=== PATIENT | male | born 1950 | race African-American/Black ===

== ENCOUNTER 2021-01-15 16:51 | Emergency (ER) | payer OTHER, SELFPAY ==
[2021-01-15 17:15] VITALS: BP 144/70; PULSE 102; RESP 18; TEMP 36.5; O2SAT 95; BMI 19.0
--- NOTE | 2021-01-15 17:54 | HMH.EDUTC ---
[facility] Disposition Clinical Impression: Parotiditis Pharyngitis Qualifiers: Pharyngitis/tonsillitis etiology: unspecified etiology Qualified Code(s): J02.9 - Acute pharyngitis, unspecified Disposition: Home, Self-Care Condition on Discharge: Good Instructions: Parotitis, DI for Parotitis-Adult Additional Instructions: Drink plenty of fluids. Take tylenol or ibuprofen for pain or fever. Take the medications as directed. Follow up with your regular doctor. GO TO THE ER FOR ANY WORSENING SYMPTOMS Prescriptions: Amoxicillin/Potassium Clav [Augmentin 875-125 Tablet] 1 tab PO Q12H 10 Days #20 tab Transmission Status: Received by [id number] predniSONE [Deltasone 10mg tablet] 10 mg PO BID 3 Days #6 tab Transmission Status: Received by [id number] Referrals: Provider,Referral, MD [Primary Care Provider] - Time of Disposition: 18:22 Medical Decision Making - Medical Records Medical records reviewed: No: I reviewed the patient's medical records. - Omar Inquiry Pt receiving controlled substance: No Vital Signs: 01/15/21 17:15 01/15/21 18:02 Temperature 97.7 F 97.7 F Temperature Source Oral Pulse Rate 102 H Pulse Rate [Right Brachial] 102 H Respiratory Rate 18 18 Blood Pressure 144/70 H Blood Pressure [Right Arm] 144/70 H Blood Pressure Mean [Right Arm] 94 Blood Pressure Source [Right Arm] Automatic Cuff Blood Pressure Position [Right Arm] Sitting 02 Sat by Pulse Oximetry 95 Oxygen Delivery Method Room Air - Lab Data Lab results reviewed: Yes: I reviewed the patient's lab results. Orders (Tests/Meds): ED MEDICATIONS Discontinued Medications Generic Name Dose Route Start Last Admin Trade Name Freq PRN Reason Stop Dose Admin Ceftriaxone Sodium 1 gm 01/15/21 17:56 01/15/21 18:01 Ceftriaxone 1gm Vial IM 01/15/21 17:57 1 gm ONCE ONE Administration Lidocaine HCl 0 ml 01/15/21 17:56 01/15/21 18:01 Lidocaine 1% 5ml Pf Vial IM 01/15/21 17:57 2.1 ml ONCE ONE Administration [facility] HPI - General Stated complaint: knot below righ ear, cannot eat Time Seen by Provider: 01/15/21 17:35 Mode of Arrival: Ambulatory Source of Information: Patient Limitations: No Limitations Description of Symptoms (Recalled from Triage Doc. by RN): PATIENT C/O PROBLEM WITH RIGH EAR AND DIFFICULTY CHEWING AND OPENING MOUTH. WAS SEEN AT [facility] ON 12/04 WITH SAME PROBLEM BUT STATES THEY DID NOT ACT CONCERNED HEENT Symptoms (Recalled from RN notes): Yes Resp Symptoms (Recalled from RN notes): No Skin Symptoms (Recalled from RN notes): No MS Symptoms (Recalled from RN notes): No Functional Status (Recalled from RN notes): WNL - History of Present Illness Provider Complaint: He is having swelling and tenderness to his right jaw line and the area right in front of his right ear. He also has a sore throat. He states that the tenderness started about 2 weeks ago and it has got progressively worse. He denies any fever. - Related Data Home Medications Medication Instructions Recorded Confirmed Omeprazole Magnesium [Prilosec Otc 20 mg PO DAILY 12/19/17 12/19/17 20mg Tab] Previous Rx's Medication Instructions Recorded methylPREDNISolone [Medrol] 16 mg PO UD DOSE PK #1 tablet 12/19/17 Amoxicillin/Potassium Clav 1 tab PO Q12H 10 Days #20 tab 01/15/21 [Augmentin 875-125 Tablet] predniSONE [Deltasone 10mg tablet] 10 mg PO BID 3 Days #6 tab 01/15/21 Allergies Allergy/AdvReac Type Severity Reaction Status Date / Time No Known Allergies Allergy Verified 01/15/21 17:44 - Worker's Comp Is this a Worker's Comp case?: No [facility] History - Hepatitis A Screen Drug use history?: No High risk sexual behaviors?: No History of sexually transmitted infection?: No Currently employed?: No Childcare worker?: No Do you have indoor plumbing?: Yes Do you have electricity?: Yes Attestation statement:: This patient has been screened for Hepatitis A risk
[2021-01-15 18:02] VITALS: BP 144/70; PULSE 102; RESP 18; TEMP 36.5; O2SAT 95
== END 2021-01-15 18:25 | disposition home or self-care (01) ==
LOC: ER 16:55 → UTC 16:56
PROVIDERS: Emergency Provider Family Medicine
DX: K11.20 Sialoadenitis, unspecified (principal); F17.210 Nicotine dependence, cigarettes, uncomplicated
CPT/HCPCS: G0463; 96372; 99202

== ENCOUNTER → 2021-03-01 17:54 | Outpatient (CLI) | payer OTHER, SELFPAY | PROVIDERS: PCP Physician Assistant; Visit Provider Nurse Practitioner | DX: U07.1 COVID-19 (principal) | CPT/HCPCS: C9803; U0003; U0005 ==

== ENCOUNTER 2021-11-30 14:48 | Emergency (ER) | payer OTHER, MEDICARE, SELFPAY ==
[2021-11-30 14:50] VITALS: BP 170/94; PULSE 93; RESP 18; TEMP 36.8; O2SAT 96; BMI 17.6
--- NOTE | 2021-11-30 14:58 | PC.NURSE ---
145 ED MD AT BEDSIDE
--- NOTE | 2021-11-30 14:59 | CT_ITS ---
FINAL REPORT CLINICAL HISTORY: Transient memory loss FINDINGS: Axial images of the head were obtained without contrast. Coronal reformatted images were also obtained. This study was performed with techniques to keep radiation doses as low as reasonably achievable (ALARA). Individualized dose reduction techniques using automated exposure control or adjustment of mA and/or kV according to the patient's size were employed. There is generalized age-appropriate atrophy. Periventricular low-attenuation areas are seen consistent with mild chronic ischemic changes. There is no evidence of intracranial hemorrhage or mass. There is no evidence of acute infarct. There is no evidence of shift of the midline structures. No skull abnormality is seen on the bone window images. IMPRESSION: Atrophy and mild periventricular chronic ischemic changes. No acute intracranial abnormality identified. Reviewed, Interpreted and Dictated by Vasquez Merino III, MD Transcribed by Rusty Childs Authenticated and [facility]
--- NOTE | 2021-11-30 14:59 | CT_ITS ---
FINAL REPORT TECHNIQUE: Thin section axial CT with IV contrast supplemented with multiplanar reconstruction under CT angiogram protocol. 3-D reconstructions were performed. This study was performed with techniques to keep radiation doses as low as reasonably achievable (ALARA). Individualized dose reduction techniques using automated exposure control or adjustment of mA and/or kV according to the patient''s size were employed. CLINICAL HISTORY: Transient memory loss FINDINGS: The distal vertebral, basilar and distal internal carotid arteries have an unremarkable appearance. No aneurysm is seen. Major intracranial vessels are patent without significant stenosis. IMPRESSION: No evidence of significant stenosis, aneurysm or major branch occlusion. Reviewed, Interpreted and Dictated by Vasquez Merino III, MD Transcribed by Rusty Childs Authenticated and [facility]
--- NOTE | 2021-11-30 14:59 | CT_ITS ---
FINAL REPORT TECHNIQUE: Thin section axial CT with IV contrast supplemented with multiplanar reconstruction under CT angiogram protocol. This study was performed with techniques to keep radiation doses as low as reasonably achievable (ALARA). Individualized dose reduction techniques using automated exposure control or adjustment of mA and/or kV according to the patient''s size were employed. NASCET criteria was utilized during interpretation. CLINICAL HISTORY: Transient memory loss FINDINGS: Aortic arch: Arch shows no significant narrowing. Great vessel origins are widely patent. Right carotid: There is mild plaque at the bifurcation. No significant stenosis is seen of the cervical common or internal carotid artery. Left carotid: There is mild plaque at the bifurcation. No significant stenosis is seen of the cervical common or internal carotid artery. Vertebral: Vertebral arteries are code dominant. No significant stenosis is present. IMPRESSION: No significant stenosis. Reviewed, Interpreted and Dictated by Vasquez Merino III, MD Transcribed by Rusty Childs Authenticated and [facility]
--- NOTE | 2021-11-30 14:59 | ECG_ITS ---
APPROVED REPORT Exam: Resting ECG HR:89 bpm ECG Measurements Heart Rate 89 AXES ND 160 P 82 QRSd 78 QRS -63 QT 359 T 89 QTc 405 Conclusion SINUS RHYTHM LOW QRS VOLTAGE IN EXTREMITY LEADS [QRS DEFLECTION < 0.5 mV IN LIMB LEADS] INFERIOR MYOCARDIAL INFARCTION , OF INDETERMINATE AGE [40+ ms Q WAVE AND/OR ST/T ABNORMALITY IN II/aVF] ANTEROSEPTAL MYOCARDIAL INFARCTION , OF INDETERMINATE AGE [40+ ms Q WAVE IN V1-V4] ABNORMAL ECG UNCONFIRMED REPORT Electronically signed by : Albert Gold MD 11/30/2021 17:01:02
--- NOTE | 2021-11-30 15:00 | HMH.EDGENADL ---
ED Disposition Clinical Impression: AMS (altered mental status) Disposition: Home, Self-Care Condition on Discharge: Good Additional Instructions: At this time was felt you are safe to be discharged home from the emergency department. If new or worsening symptoms please do not hesitate to return for continued evaluation. neurology will contact you for an appointment for outpatient follow-up. Please follow-up with them. - Critical Care Critical Care Time: No Attestation: On , the high probability of a clinically significant, sudden or life threatening deterioration of the following system(s) required my full and direct attention, intervention and personal management. The time I documented below is in addition to time spent performing reported procedures but includes the following listed in this critical care notation. Medical Decision Making - Omar Inquiry Pt receiving controlled substance: No Vital Signs: 11/30/21 14:50 Temperature 98.3 F Temperature Source Oral Pulse Rate [Radial] 93 H Respiratory Rate 18 Blood Pressure [Left Arm] 170/94 H Blood Pressure Mean [Left Arm] 119 Blood Pressure Source [Left Arm] Automatic Cuff Blood Pressure Position [Left Arm] Sitting 02 Sat by Pulse Oximetry 96 Oxygen Delivery Method Room Air - Lab Data Lab Results 11/30/21 15:00: WBC 3.5 L, RBC 4.25 L, Hgb 14.3, Hct 44.1, MCV 103.9 H, MCH 33.6 H, MCHC 32.4, RDW 14.5, Plt Count 174, MPV 9.7, Neut % (Auto) 52.8, Lymph % (Auto) 29.9, Lyon % (Auto) 10.3 H, Eos % (Auto) 4.7, Baso % (Auto) 2.2 H, Neut # (Auto) 1.9, Lymph # (Auto) 1.1, Lyon # (Auto) 0.4, Eos # (Auto) 0.2, Baso # (Auto) 0.1 11/30/21 15:00: Sodium 136, Potassium 4.4, Chloride 103, Carbon Dioxide 26, Anion Gap 11.4, BUN 20, Creatinine 1.10, Estimated Creat Clear 52, Estimated GFR 66, Est GFR ( Amer) 80, Glucose 116 H, Calcium 9.4, Magnesium 1.9, Total Bilirubin 0.9, AST 29, ALT 17, Alkaline Phosphatase 112, Total Protein 7.9, Albumin 4.7, Globulin 3.2, Albumin/Globulin Ratio 1.5 Result diagrams: 11/30/21 15:00 11/30/21 15:00 Orders (Tests/Meds): ED MEDICATIONS Discontinued Medications Generic Name Dose Route Start Last Admin Trade Name Amber PRN Reason Stop Dose Admin Iopamidol 100 ml 11/30/21 16:04 11/30/21 16:05 Iopamidol-370 (76%);100ml Bottle IV 11/30/21 16:05 100 ml ONCE ONE Administration Sodium Chloride 50 ml 11/30/21 16:04 11/30/21 16:05 0.9 % Sodium Chloride 50 Ml Vial IV 11/30/21 16:05 50 ml ONCE ONE Administration Sodium Chloride 10 ml 11/30/21 16:04 11/30/21 16:05 Sodium Chloride 0.9% 10ml Syr (Rad Only) IV 11/30/21 16:05 10 ml ONCE ONE Administration - ECG Data Tracing #1 Independently interpreted by me, rate is 89, rhythm is regular, QTc 405, no ST elevation in anatomical contiguous leads Medical Decision Narrative: In summary patient is a 8-year-old male past medical history described above who presents emergency department for evaluation of acute transient memory loss. Patient is hemodynamically stable and nontoxic-appearing upon arrival, alert and oriented, with a nonfocal neurologic exam. Differential diagnosis includes TIA, normal memory loss, dementia, among others. Work-up will be conducted with hematologic labs, noncontrasted CT scan head, CT of the head and neck, EKG. ABCD2 score is 4 putting patient at moderate risk. Work-up is reviewed by me, hematologic labs are nonactionable, CT of the head and neck and noncontrasted CT scan of the head are unremarkable for acute pathology. On repeat evaluation patient continued to have a nonfocal neurologic exam. The case was discussed with [facility] and they recommend outpatient work-up at this time. Patient will be referred to [facility] and was given return precautions and verbalized understanding. General Adult HPI - General Stated complaint: Synocpe lost memory Time Seen by Provider: 11/30/21 15:00 - History of Presen
[2021-11-30 15:29] LABS: Basophils # 0.1 K/mm3 (0-0.2); Basophils % 2.2 % (0.1-2.0); Eosinophils # 0.2 K/mm3 (0.0-0.4); Eosinophils % 4.7 % (0.1-12.0); Hematocrit 44.1 % (42.0-52.0); Hemoglobin 14.3 g/dL (14.1-18.0); Lymphocytes # 1.1 K/mm3 (0.7-4.5); Lymphocytes % 29.9 % (10-50); Mean Corpuscular HGB Conc 32.4 g/dL (31.8-35.4); Mean Corpuscular Hemoglobin 33.6 pg (27.0-31.2); Mean Corpuscular Volume 103.9 fl (80-94); Mean Platelet Volume 9.7 fl (7.4-10.4); Monocytes # 0.4 K/mm3 (0.1-1.0); Monocytes % 10.3 % (1.7-9.3); Neutrophils # 1.9 K/mm3 (1.8-7.8); Neutrophils % 52.8 % (37.0-80.0); Platelet Count 174 K/mm3 (142-424); Red Blood Count 4.25 M/mm3 (4.60-6.20); Red Cell Distribution Width 14.5 % (11.5-17.5); White Blood Count 3.5 K/mm3 (4.8-10.8)
[2021-11-30 15:37] LABS: Chloride 103 mmol/L (98-107); Sodium 136 mmol/L (136-145)
[2021-11-30 15:38] LABS: Potassium 4.4 mmoL/L (3.5-5.1)
[2021-11-30 15:40] LABS: Alanine Aminotransferase 17 U/L (12-78); Albumin Level 4.7 g/dl (3.5-5.0); Albumin/Globulin Ratio 1.5 (1.1-1.8); Alkaline Phosphatase 112 U/L (38-126); Anion Gap 11.4 mEq/L (5-15); Aspartate Amino Transferase 29 U/L (17-59); Bilirubin,Total 0.9 mg/dl (0.2-1.3); Blood Urea Nitrogen 20 mg/dl (9-20); Carbon Dioxide 26 mmol/L (22.0-30.0); Creatinine Clearance Estimated 52 mL/min (50-200); Estimated Glomerular Filt Rate 66 ml/min (>60); GFR (African American) 80 ML/MIN (>60); Globulin 3.2 g/dL (1.3-3.2); Glucose 116 mg/dl (74-100); Total Protein,Serum 7.9 g/dl (6.3-8.2)
[2021-11-30 15:41] LABS: Calcium 9.4 mg/dl (8.4-10.2); Magnesium 1.9 mg/dl (1.6-2.3)
--- NOTE | 2021-11-30 15:58 | PC.NURSE ---
PT TO CT AT THIS TIME
--- NOTE | 2021-11-30 15:59 | PC.NURSE ---
1530 ROUNDED ON PT AT THIS TIME. PT WITHOUT NEEDS
--- NOTE | 2021-11-30 16:09 | PC.NURSE ---
pt return from CT
--- NOTE | 2021-11-30 16:09 | PC.NURSE ---
PT RETURNED FROM CT
--- NOTE | 2021-11-30 16:20 | PC.NURSE ---
1620 ROUNDED ON PT, WARM BLANKET PROVIDED. NO NEEDS AT THIS TIME
--- NOTE | 2021-11-30 17:25 | PC.NURSE ---
GARFIELD BUSTILLOS SPAEKING WITH [facility]
--- NOTE | 2021-11-30 17:27 | PC.NURSE ---
ED MD AT BEDSIDE TO DISCUSS DISCHARGE
[2021-11-30 17:30] VITALS: BP 151/84; PULSE 80; RESP 18; TEMP 36.8; O2SAT 98
== END 2021-11-30 17:33 | disposition home or self-care (01) ==
PROVIDERS: Emergency Provider Emergency Medicine
DX: R41.82 Altered mental status, unspecified (principal); Z79.899 Other long term (current) drug therapy; Z72.0 Tobacco use
CPT/HCPCS: 70450; 70496; 70498; 80053; 83735; 85025; 93005; 99285; Q9967

== ENCOUNTER 2023-04-09 15:36 | Emergency (ER) | payer MEDICARE, OTHER, SELFPAY ==
--- NOTE | 2023-04-09 15:43 | ECG_ITS ---
APPROVED REPORT Exam: Resting ECG HR:83 bpm ECG Measurements Heart Rate 83 AXES ND 157 P 69 QRSd 82 QRS -25 QT 356 T 73 QTc 396 Conclusion SINUS RHYTHM WITH OCCASIONAL VENTRICULAR PREMATURE COMPLEXES POSSIBLE LEFT ATRIAL ENLARGEMENT [-0.1mV P-WAVE IN V1/V2] LOW QRS VOLTAGE IN EXTREMITY LEADS [QRS DEFLECTION < 0.5 mV IN LIMB LEADS] INFERIOR MYOCARDIAL INFARCTION , PROBABLY OLD [40+ ms Q WAVE AND/OR ST/T ABNORMALITY IN II/aVF] ABNORMAL ECG UNCONFIRMED REPORT Electronically signed by : Albert Gold MD 04/09/2023 23:01:30
--- NOTE | 2023-04-09 15:51 | PC.NURSE ---
Dr. Heath at [facility] for pt eval
--- NOTE | 2023-04-09 15:54 | XR_ITS ---
PROCEDURE INFORMATION: Exam: XR Chest Exam date and time: 04/09/2023 4:20 PM Age: 72 years old Clinical indication: Dyspnea TECHNIQUE: Imaging protocol: Radiologic exam of the chest. Views: 1 view. COMPARISON: CT ANGIO NECK 11/30/2021 3:56 PM FINDINGS: Lungs: There is a dense consolidation in the right lower lobe concerning for infection. Pleural spaces: Small right pleural effusion. Heart/Mediastinum: No evidence of mediastinal widening or cardiac silhouette enlargement; the mediastinum and heart appear within normal limits for contour and size. Stable cardiac and mediastinal contours. Vasculature: There are calcifications of the aortic arch. Bones/joints: No evidence of acute osseous abnormalities within the visualized portions of the thoracic spine and ribs. Osseous structures appear appropriate for patient age. IMPRESSION: There is a dense consolidation in the right lower lobe concerning for infection with a small adjacent pleural effusion.
--- NOTE | 2023-04-09 15:55 | ED_ITS ---
Discharge Plan Disposition Patient Disposition: Home, Self-Care Prescriptions Prescriptions: New doxycycline hyclate 100 mg capsule 100 mg PO BID 10 Days Qty: 20 0RF benzonatate 100 mg capsule 100 mg PO TID PRN (Reason: cough) 5 Days Qty: 20 0RF albuterol sulfate 90 mcg/actuation HFA aerosol inhaler 4 inh inhalation Q4H PRN (Reason: shortness of breath or wheezing) Qty: 8.5 0RF Rx Instructions: 4 puffs every 4 hours for 48 hours then as needed for shortness of breath or wheezing following No Action omeprazole magnesium [Prilosec OTC] 20 MG tablet,delayed release (DR/EC) 20 mg PO DAILY methylprednisolone [Medrol] 16 MG tablet 16 mg PO UD DOSE PK Qty: 1 0RF prednisone 10 MG tablet 10 mg PO BID 3 Days Qty: 6 0RF amoxicillin-pot clavulanate 1 EACH tablet 1 tab PO Q12H 10 Days Qty: 20 0RF Referrals Follow up/Referrals: Provider,Referral, MD [Primary Care Provider] - See instructions Activity Restrictions/Add. Instructions Additional Instructions/Restrictions: Symptoms are consistent with a COPD exacerbation right lower lobe pneumonia antibiotics have been prescribed a steroids were given to the emergency department which are long-acting please take your breathing treatment as indicated and return to the emergency department if you have any worsening symptoms. As discussed your salt level was very low and your blood around the point of needing to be hospitalized and I offered hospitalization but you opted to go home. Please drink salt containing fluids such as Gatorade Powerade etc. and have your sodium level rechecked within 24 to 48 hours and return the emergency part with any worsening symptoms. Clinical Impressions Clinical Impression: Acute exacerbation of chronic obstructive pulmonary disease, CAP (community acquired pneumonia), Acute hyponatremia Discharge ED Provider: Pearl Heath General Adult HPI General Chief complaint: Shortness of Breath/Dyspnea Stated complaint: SOA Time Seen by Provider: 04/09/23 15:50 History of Present Illness HPI narrative: Is a 72-year-old with a [id number] history of smoking presumed history of COPD presented today with cough wheezing productive sputum and shortness of breath over the last several days to weeks. No fevers or chills no chest pain associate with this no lower extremity swelling no history of cardiac disease etc. Related Data Home Medications Medication Instructions Recorded Confirmed omeprazole magnesium 20 mg 20 mg PO DAILY GERD 12/19/17 12/19/17 tablet,delayed release (Prilosec OTC) Previous Rx's Medication Instructions Recorded methylprednisolone 16 mg tablet 16 mg PO UD DOSE PK #1 tab 12/19/17 (Medrol) amoxicillin 875 mg-potassium 1 tab PO Q12H 10 days #20 tabs 01/15/21 clavulanate 125 mg tablet prednisone 10 mg tablet 10 mg PO BID 3 days #6 tabs 01/15/21 albuterol sulfate 90 mcg/actuation 4 inh inhalation Q4H PRN shortness 04/09/23 aerosol inhaler of breath or wheezing #8.5 grams benzonatate 100 mg capsule 100 mg PO TID PRN cough 5 days #20 04/09/23 caps doxycycline hyclate 100 mg capsule 100 mg PO BID 10 days #20 caps 04/09/23 Allergies Allergy/AdvReac Type Severity Reaction Status Date / Time No Known Allergies Allergy Verified 01/15/21 17:44 [facility] Disclaimer: The information contained in this section may have been updated after the patient was seen, as this information can be updated by other users. Social History Smoking Status: Current every day smoker tobacco type: cigarettes alcohol intake: never current occupational status: other Travel in the last 8 weeks: None ROS Obtained: Yes All systems reviewed & no additional complaints except as documented Physical Exam General General appearance: alert Respiratory Respiratory exam: Present other (Faint expiratory wheezing for air movement no respiratory distress speaking in full sentences oxygen saturations in mid 90s on room air no focal adventitious lung sound) Cardiovascular Cardiovascular exam: Present tachycardia Neurological Exam Neurological exam: Present alert and oriented X3 Medical Decision Making Omar Inquiry Pt receiving controlled substance: No Vital Signs: 04/09/23 16:26 04/09/23 16:30 Temperature 98.9 F Temperature Source Oral Pulse Rate 76 Pulse Rate [Left Radial] 112 H Respiratory Rate 24 20 Blood Pressure 134/71 Blood Pressure [Right Arm] 137/89 Blood Pressure Mean 94 Blood Pressure Mean [Right Arm] 105 02 Sat by Pulse Oximetry 89 L 90 L Oxygen Delivery Method Room Air Lab Data Lab results reviewed: Yes I reviewed the patient's lab results. Lab Results 04/09/23 16:34: SARS-CoV-2 (PCR) Not detected, Influenza A Untype (PCR) Not detected, Influenza Type B (PCR) Not detected 04/09/23 17:35: Sodium 127 L, Potassium 4.1, Chloride 96 L, Carbon Dioxide 23, Anion Gap 12.1, BUN 18, Creatinine 1.00, Estimated Creat Clear 70, Estimated GFR 74, Est GFR ( Amer) 89, Glucose 107 H, Calcium 8.6, Total Bilirubin 0.6, AST 33, ALT 25, Alkaline Phosphatase 132 H, Total Protein 8.3 H, Albumin 4.6, Globulin 3.7 H, Albumin/Globulin Ratio 1.2 04/09/23 17:35 Orders (Tests/Meds): ED MEDICATIONS Discontinued Medications Generic Name Dose Route Start Last Admin Trade Name Freq PRN Reason Stop Dose Admin Albuterol/Ipratropium 3 ml 04/09/23 15:54 04/09/23 16:09 Ipratropium/Albuterol 3 Ml Neb IH 04/09/23 15:55 3 ml ONCE ONE Administration Dexamethasone Sodium Phosphate 10 mg 04/09/23 15:54 04/09/23 16:09 Dexamethasone 4mg/Ml 1ml Vial IV 04/09/23 15:55 10 mg ONCE ONE Administration Doxycycline Hyclate 100 mg 04/09/23 15:54 04/09/23 16:16 Doxycycline Hycl 100 Mg Tablet PO 04/09/23 15:55 100 mg ONCE ONE Administration Magnesium Sulfate 2 gm in 50 mls @ 50 mls/hr 04/09/23 15:54 04/09/23 16:16 Magnesium Sulfate 2gm/50ml Premix IV 04/09/23 16:53 50 mls/hr ONCE ONE Administration Lactated Ringer's 500 mls @ 999 mls/hr 04/09/23 16:00 04/09/23 16:16 Lactated Ringer's 1000 Ml Bag IV 04/09/23 16:30 999 mls/hr .Q31M TING Administration ORDERS Category Date Time Status CXR --portable [XR chest portable] Stat Exams 04/09/23 15:54 Completed BNP [Brain Natriuretic Peptide] Stat Lab 04/09/23 17:35 Results CBC w/Auto Diff [Complete Blood Count Auto Diff] Stat Lab 04/09/23 17:35 Received CMP [Comprehensive Metabolic Panel] Stat Lab 04/09/23 17:35 Results Rapid PCR Covid and Flu A/B Stat Lab 04/09/23 16:34 Completed Trop I [Troponin I] Stat Lab 04/09/23 17:35 Results Troponin I Q3H Lab 04/09/23 19:00 Ordered Troponin I Q3H Lab 04/09/23 22:00 Ordered ECG initial Besson Routine Y 04/09/23 15:43 Completed Medical Decision Narrative: Patient is a very thin 72-year-old male with a history of presumed COPD presented today with symptoms consistent with a COPD exacerbation including shortness of breath increased pedal production wheezing he has a body habitus of emphysema which fits clinically. Will give nebs steroids antibiotics IV magnesium also obtain a chest x-ray COVID and flu basic blood test will reassess. EKG was performed at person interpreted shows a ventricular rate of 83 appears to be some Q waves in the anterior precordial leads also left atrial enlargement low voltage QRS no other significant conduction abnormalities noted no evidence of STEMI. X-ray performed which I personally interpreted shows a right lower lobe pneumonia patient is not hypoxic breathing very comfortably on reassessment feeling much better stable for outpatient management. Doxycycline has been prescribed in addition to albuterol inhaler steroids were given were long- acting. Labs pending will discharge assuming that there is no significant abnormalities in the labs. Reassessment 6:12 PM blood test returned patient has significant hyponatremia wi th a sodium of 127 hospitalization was recommended and offered but patient adamantly denied wanting to go home. States he will drink salt containing fluids return with any worsening symptoms states he feels very good and wants to go home. [facility] and will call to try to get blood test redone within 24 to 48 hours and have further evaluation and discussion regarding hyponatremia and the pneumonia. I strongly emphasized that he needs to return to the emergency part with any worsening symptoms which he agrees to. Critical Care Critical Care Time Critical Care Time: Yes Attestation: On 04/09/23, the high probability of a clinically significant, sudden or life threatening deterioration of the following system(s) required my full and direct attention, intervention and personal management. The time I documented below is in addition to time spent performing reported procedures but includes the following listed in this critical care notation. Total Time Total Critical Care Time: 35
--- NOTE | 2023-04-09 15:55 | ECG_ITS ---
APPROVED REPORT Exam: Resting ECG HR:77 bpm ECG Measurements Heart Rate 77 AXES CO 168 P 81 QRSd 74 QRS -39 QT 359 T 77 QTc 391 Conclusion SINUS RHYTHM Bi-atrial abnormality LOW QRS VOLTAGE IN EXTREMITY LEADS [QRS DEFLECTION < 0.5 mV IN LIMB LEADS] INFERIOR MYOCARDIAL INFARCTION , PROBABLY OLD [40+ ms Q WAVE AND/OR ST/T ABNORMALITY IN II/aVF] ABNORMAL ECG UNCONFIRMED REPORT Electronically signed by : Albert Gold MD 04/11/2023 08:02:10
[2023-04-09] MEDS: IPRATROPIUM/ALBUTEROL 3 ML NEB IH (16:09)
[2023-04-09] MEDS: DEXAMETHASONE 4MG/ML 1ML VIAL 10 MG IV (16:09)
[2023-04-09] MEDS: MAGNESIUM SULFATE IN WATER 2 GM/50 ML PIGGYBACK IV (16:16)
[2023-04-09] MEDS: DOXYCYCLINE HYCL 100 MG TABLET PO (16:16)
[2023-04-09] MEDS: LACTATED RINGERS 1000ML 500 ML 999 ML IV (16:16)
[2023-04-09 16:26] VITALS: BP 137/89; PULSE 112; RESP 24; TEMP 37.2; O2SAT 89; BMI 21.7
--- NOTE | 2023-04-09 16:29 | PC.NURSE ---
Rad was at bedside
[2023-04-09 16:30] VITALS: BP 134/71; PULSE 76; RESP 20; O2SAT 90
[2023-04-09 16:53] LABS: Coronavirus 19, PCR Not Detected (NotDetected); Influenza A, PCR Not Detected (NotDetected); Influenza B, PCR Not Detected (NotDetected)
[2023-04-09 18:06] LABS: Alanine Aminotransferase 25 U/L (12-78); Albumin Level 4.6 g/dl (3.5-5.0); Albumin/Globulin Ratio 1.2 (1.1-1.8); Alkaline Phosphatase 132 U/L (38-126); Anion Gap 12.1 mEq/L (5-15); Aspartate Amino Transferase 33 U/L (17-59); Bilirubin,Total 0.6 mg/dl (0.2-1.3); Blood Urea Nitrogen 18 mg/dl (9-20); Calcium 8.6 mg/dl (8.4-10.2); Carbon Dioxide 23 mmol/L (22.0-30.0); Chloride 96 mmol/L (98-107); Creatinine Clearance Estimated 70 mL/min (50-200); Estimated Glomerular Filt Rate 74 ml/min (>60); GFR (African American) 89 ML/MIN (>60); Globulin 3.7 g/dL (1.3-3.2); Glucose 107 mg/dl (74-100); Potassium 4.1 mmoL/L (3.5-5.1); Sodium 127 mmol/L (136-145); Total Protein,Serum 8.3 g/dl (6.3-8.2)
[2023-04-09 18:15] VITALS: BP 134/71; PULSE 78; RESP 20; TEMP 36.8; O2SAT 90
[2023-04-09 18:17] LABS: Basophils % 0.3 % (0.1-2.0); Eosinophils % 0.3 % (0.1-12.0); Hematocrit 45.3 % (42.0-52.0); Hemoglobin 14.7 g/dL (14.1-18.0); Lymphocytes # 0.5 K/mm3 (0.7-4.5); Lymphocytes % 7.7 % (10-50); Mean Corpuscular HGB Conc 32.4 g/dL (31.8-35.4); Mean Corpuscular Hemoglobin 32.9 pg (27.0-31.2); Mean Corpuscular Volume 101.6 fl (80-94); Mean Platelet Volume 9.2 fl (7.4-10.4); Monocytes # 0.2 K/mm3 (0.1-1.0); Monocytes % 2.9 % (1.7-9.3); NT Pro Brain Natriuretic Pep. 1270 pg/mL (0-125); Neutrophils # 5.7 K/mm3 (1.8-7.8); Neutrophils % 88.8 % (37.0-80.0); Platelet Count 165 K/mm3 (142-424); Red Blood Count 4.46 M/mm3 (4.60-6.20); Red Cell Distribution Width 14.4 % (11.5-17.5); White Blood Count 6.4 K/mm3 (4.8-10.8)
[2023-04-09 18:19] LABS: MANUAL DIFFERENTIAL MANUAL DIFFERENTIAL (MANUAL DIFF)
[2023-04-09 18:20] LABS: Troponin I < 0.01 ng/ml (0.00-0.034)
[2023-04-09 18:31] LABS: Lymphocytes % 6 % (10-50); Macrocytosis 1+; Neutrophils % 94 % (42-76); Platelet Estimate Normal; Total Cells Counted 100
== END 2023-04-09 18:16 | disposition home or self-care (01) ==
PROVIDERS: Emergency Provider Student in an Organized Health Care Education/Training Program
DX: J44.1 Chronic obstructive pulmonary disease with (acute) exacerbation (principal); J18.9 Pneumonia, unspecified organism; E87.1 Hypo-osmolality and hyponatremia; F17.210 Nicotine dependence, cigarettes, uncomplicated
CPT/HCPCS: 71045; 80053; 83880; 84484; 85007; 85025; 85027; 87636; 93005; 96365; 96375; 99291; J3475

== ENCOUNTER 2024-01-11 19:48 | Inpatient (IN) | payer MEDICARE, OTHER, SELFPAY ==
[2024-01-11 19:50] VITALS: BP 185/95; PULSE 88; RESP 28; TEMP 36.5; O2SAT 66; BMI 17.6
--- NOTE | 2024-01-11 19:57 | XR_ITS ---
PROCEDURE INFORMATION: Exam: XR Chest Exam date and time: 01/11/2024 8:00 PM Age: 73 years old Clinical indication: Shortness of breath; Additional info: SOA, new productive cough TECHNIQUE: Imaging protocol: Radiologic exam of the chest. Views: 1 view. COMPARISON: CR XR CHEST PORTABLE 04/09/2023 4:20 PM FINDINGS: Lungs: Hyperinflated lungs. Coarse bibasilar reticular opacities are noted, right worse than left. No convincing pulmonary venous distension. Pleural spaces: Small bilateral pleural effusions. Heart/Mediastinum: New mild cardiac enlargement. Vasculature: Calcified aorta without dilation. Bones/joints: Age appropriate. IMPRESSION: Constellation of findings could reflect heart failure, but is difficult to exclude pneumonia with parapneumonic effusions.
--- NOTE | 2024-01-11 19:57 | ED_ITS ---
Discharge Plan Disposition Patient Disposition: Admitted Chief Complaint: Shortness of Breath/Dyspnea Clinical Impressions Clinical Impression: New onset of congestive heart failure, Right lower lobe pneumonia, Acute on chronic respiratory failure with hypoxemia Discharge ED Provider: Ankur Huitron HPI General Chief Complaint: Shortness of Breath/Dyspnea Stated Complaint: JAX pt has COPD Time Seen by Provider: 01/11/24 19:51 History of Present Illness HPI narrative: Please note that above description of symptoms, in this electronic medical record under categorization of recalled from ER triage doctor by RN are reflective of an initial nursing assessment, however, is not reflective of my full history and physical exam that was personally taken and clarified. Consequentially, this preceding description of symptoms, which may include the patient's categorized chief complaint in the EMR, do not reflect my personal clinical impression, and the ultimate description of history of present illness and patient stated complaints should be deferred to this section of the note. Unless stated otherwise or congruent with this section of the note, additional signs, symptoms, or incongruence should be interpreted as inaccurate with my clinical impression. Related Data Home Medications ?Medication ?Instructions ?Recorded ?Confirmed omeprazole magnesium 20 mg 20 mg PO DAILY GERD 12/19/17 12/19/17 tablet,delayed release (Prilosec OTC) Previous Rx's ?Medication ?Instructions ?Recorded methylprednisolone 16 mg tablet 16 mg PO UD DOSE PK #1 tab 12/19/17 (Medrol) amoxicillin 875 mg-potassium 1 tab PO Q12H 10 days #20 tabs 01/15/21 clavulanate 125 mg tablet prednisone 10 mg tablet 10 mg PO BID 3 days #6 tabs 01/15/21 albuterol sulfate 90 mcg/actuation 4 inh inhalation Q4H PRN shortness 04/09/23 aerosol inhaler of breath or wheezing #8.5 grams benzonatate 100 mg capsule 100 mg PO TID PRN cough 5 days #20 04/09/23 caps doxycycline hyclate 100 mg capsule 100 mg PO BID 10 days #20 caps 04/09/23 Allergies Allergy/AdvReac Type Severity Reaction Status Date / Time No Known Allergies Allergy Verified 01/15/21 17:44 [facility] Disclaimer: The information contained in this section may have been updated after the patient was seen, as this information can be updated by other users. Social History (Updated 04/09/23 @ 18:13 by Pearl Heath MD) Smoking Status: Current every day smoker tobacco type: cigarettes alcohol intake: never current occupational status: other Travel in the last 8 weeks: None ROS Obtained: Yes All systems reviewed & no additional complaints except as documented Physical Exam General General appearance: alert and in distress (Moderate story) Neck Neck exam: Present trachea midline Chest Chest inspection: Present normal inspection and symmetric chest wall rise Respiratory Respiratory exam: Present wheezes (Diffuse expiratory wheezes throughout expiration.), accessory muscle use (Breathing through pursed lips), prolonged expiratory phase and other (Speaking in 1-2 word sentences, head-bobbing.); Absent respiratory distress or stridor Cardiovascular Cardiovascular exam: Present regular rate, normal rhythm and other (Pulses equal and symmetric in upper and lower extremities) Extremities Exam Extremities exam: Absent edema Neurological Exam Neurological exam: Present alert, oriented X3, CN II-XII intact and normal gait Skin Skin exam: Present warm and dry; Absent cyanosis, diaphoresis or pallor HEART Score HEART Score HEART Score assessment performed?: Yes History (anamnesis): Moderately suspicious ECG: Non-specific disturbance Age: >65 years Risk factors: 3 or more risk factors Troponin: 1-3x normal limit HEART Score: 7 Critical Care Critical Care Time Critical Care Time: Yes (cardiac, pulmonary) Attestation: On 01/11/24, the high probability of a clinically significant, sudden or life threatening deterioration of the following system(s) required my full and direct attention, intervention and personal management. The time I documented below is in addition to time spent performing reported procedures but includes the following listed in this critical care notation. Total Time Total Critical Care Time: 35 Medical Decision Making Medical Records Medical records reviewed: Yes I reviewed the patient's medical records. Omar Inquiry Pt receiving controlled substance: No Omar was queried for this patient: No Vital Signs Vital Signs: 01/11/24 19:50 01/11/24 21:05 01/11/24 21:05 Temperature 97.7 F Temperature Source Oral Pulse Rate 94 H Pulse Rate [Right Brachial] 88 Respiratory Rate 28 H Blood Pressure [Right Arm] 185/95 H Blood Pressure Mean [Right Arm] 125 02 Sat by Pulse Oximetry 66 L Oxygen Delivery Method Room Air Nasal Cannula Oxygen Flow Rate (LPM) 4 01/11/24 21:05 Temperature Temperature Source Pulse Rate 88 Pulse Rate [Right Brachial] Respiratory Rate Blood Pressure [Right Arm] Blood Pressure Mean [Right Arm] 02 Sat by Pulse Oximetry Oxygen Delivery Method Oxygen Flow Rate (LPM) Lab Data Labs: Lab Results 01/11/24 20:00: VBG pH 7.33, VBG pCO2 43.3, VBG pO2 31.3, VBG HCO3 22.1 L, VBG Total CO2 23.4, VBG O2 Saturation 54.5, VBG Base Excess -4.0 L, VBG Lactic Acid 2.0 01/11/24 20:45: WBC 4.1 L, RBC 4.12 L, Hgb 14.2, Hct 45.4, MCV 110.1 H, MCH 34.4 H, MCHC 31.3 L, RDW 16.3, Plt Count 114 L, MPV 10.0, Neut % (Auto) 76.6, Lymph % (Auto) 15.1, [place] % (Auto) 5.4, Eos % (Auto) 2.7, Baso % (Auto) 0.2, Neut # (Auto) 3.2, Lymph # (Auto) 0.6 L, [place] # (Auto) 0.2, Eos # (Auto) 0.1, Baso # (Auto) 0.0, APTT 30.8 H, Sodium 136, Potassium 4.2, Chloride 99, Carbon Dioxide 26, Anion Gap 15.2 H, BUN 25 H, Creatinine 1.70 H, Estimated Creat Clear 33, E stimated GFR 40 L, Est GFR ( Amer) 48 L, Glucose 123 H, Lactate 1.3, Calcium 9.3, Magnesium 1.9, Total Bilirubin 1.6 H, AST 31, ALT 35, Alkaline Phosphatase 133 H, Troponin I 0.04 H, NT-Pro-B Natriuret Pep 52192 H, Total Protein 8.1, Albumin 4.8, Globulin 3.3 H, Albumin/Globulin Ratio 1.5 01/11/24 20:45 01/11/24 20:45 Response Orders (Tests/Meds): ED MEDICATIONS Generic Name Dose Route Start Last Admin Trade Name Freq PRN Reason Stop Dose Admin Acetaminophen 650 mg 01/11/24 21:29 Acetaminophen 325mg Tab PO 02/10/24 21:28 Q4HP PRN Fever or Mild Pain (1-3) Heparin Sodium (Porcine) 5,000 unit 01/11/24 21:30 Heparin Sodium 5,000 Unit/Ml Vial SQ 02/10/24 21:29 Q8H TING Nicotine 21 mg 01/11/24 21:29 Nicotine 21mg/24hr Patch TD 02/10/24 21:28 DAILYP PRN Nicotine Cravings Ondansetron HCl 4 mg 01/11/24 21:29 Ondansetron 4mg/2ml Vial IV 02/10/24 21:28 Q8HP PRN Nausea Discontinued Medications Generic Name Dose Route Start Last Admin Trade Name Freq PRN Reason Stop Dose Admin Albuterol/Ipratropium 9 ml 01/11/24 19:57 01/11/24 21:05 Ipratropium/Albuterol 3 Ml Neb IH 01/11/24 19:58 9 ml ONCE ONE Administration Furosemide 60 mg 01/11/24 21:26 01/11/24 21:32 Furosemide 40mg/4ml Vial IV 01/11/24 21:27 60 mg ONCE ONE Administration Ceftriaxone Sodium 2 gm/ 100 mls @ 200 mls/hr 01/11/24 20:08 01/11/24 20:50 Sodium Chloride IV 01/11/24 20:37 200 mls/hr ONCE ONE Administration Azithromycin 500 mg/ Sodium 250 mls @ 250 mls/hr 01/11/24 20:09 01/11/24 21:30 Chloride IV 01/11/24 20:10 250 mls/hr ONCE ONE Administration Magnesium Sulfate 2 gm in 50 mls @ 50 mls/hr 01/11/24 20:10 Magnesium Sulfate 2gm/50ml Premix IV 01/11/24 21:09 ONCE ONE Methylprednisolone Sodium Succinate 125 mg 01/11/24 19:57 01/11/24 20:49 Methylprednisolone Sod Succ 125mg Vial IV 01/11/24 19:58 125 mg ONCE ONE Administration ORDERS Category Date Time Status XR chest portable Stat Exams 01/11/24 19:57 Completed Complete Blood Count Auto Diff AMLAB Lab 01/12/24 06:00 Ordered Complete Blood Count Auto Diff Stat Lab 01/11/24 20:45 Completed Comprehensive Metabolic Panel AMLAB Lab 01/12/24 06:00 Ordered Comprehensive Metabolic Panel AMLAB Lab 01/13/24 06:00 Ordered Comprehensive Metabolic Panel AMLAB Lab 01/14/24 06:00 Ordered Comprehensive Metabolic Panel AMLAB Lab 01/15/24 06:00 Ordered Comprehensive Metabolic Panel AMLAB Lab 01/16/24 06:00 Ordered Comprehensive Metabolic Panel AMLAB Lab 01/17/24 06:00 Ordered Comprehensive Metabolic Panel AMLAB Lab 01/18/24 06:00 Ordered Comprehensive Metabolic Panel AMLAB Lab 01/19/24 06:00 Ordered Comprehensive Metabolic Panel AMLAB Lab 01/20/24 06:00 Ordered Comprehensive Metabolic Panel AMLAB Lab 01/21/24 06:00 Ordered Comprehensive Metabolic Panel Stat Lab 01/11/24 20:45 Completed Lactic Acid Stat Lab 01/11/24 20:45 Completed Lipid Panel AMLAB Lab 01/12/24 06:00 Ordered Magnesium AMLAB Lab 01/12/24 06:00 Ordered Magnesium AMLAB Lab 01/13/24 06:00 Ordered Magnesium AMLAB Lab 01/14/24 06:00 Ordered Magnesium AMLAB Lab 01/15/24 06:00 Ordered Magnesium AMLAB Lab 01/16/24 06:00 Ordered Magnesium AMLAB Lab 01/17/24 06:00 Ordered Magnesium AMLAB Lab 01/18/24 06:00 Ordered Magnesium AMLAB Lab 01/19/24 06:00 Ordered Magnesium AMLAB Lab 01/20/24 06:00 Ordered Magnesium AMLAB Lab 01/21/24 06:00 Ordered Magnesium Stat Lab 01/11/24 20:45 Completed NT Pro Brain Natriuretic Pep. Stat Lab 01/11/24 20:45 Completed PTT [Activated Partial Thrombo Time] Stat Lab 01/11/24 20:45 Completed Troponin I Q3H Lab 01/11/24 23:00 Ordered Troponin I Q3H Lab 01/12/24 02:00 Ordered Troponin I Stat Lab 01/11/24 20:45 Completed Blood Culture Stat Micro 01/11/24 20:45 Received Venous Blood Gas Stat RT 01/11/24 20:00 Completed CA echo doppler complete Routine Y 01/11/24 21:29 Ordered MDM Narrative Medical Decision Narrative: 73-year-old male history of hypertension, hyperlipidemia, COPD still smoking (4 L nasal cannula during the day, 2 L at night) presenting with shortness of breath. Patient states that shortness of breath is gotten worse over the last 1 to 2 weeks. States that he is also had productive cough with green sputum and coughing more often than usual. No fevers or chills, nausea or vomiting, increase of oxygen at home. Came in because he feels like he cannot breathe. History was obtained via conversation with patient. On arrival, patient hemodynamically stable, alert, oriented x4, appropriate, GCS 15, moving all extremities spontaneously, pupils equal and reactive to light. Full physical exam performed and significant for acutely on chronically ill patient. Patient is tachypneic, speaking in 1-2 word sentences, and had vomiting. He is breathing out through pursed lips. He does have wheezes throughout expiration. Cardiac exam within normal limits. Differential includes COPD exacerbation, pneumonia, ACS, MD, pneumothorax, CHF, among others. Patient was given DuoNebs and Solu-Medrol for symptomatic management and correction of underlying abnormalities. Patient placed on continuous cardiac monitoring and continuous pulse ox with initial blood pressure 185/95, heart rate 28, saturation 66% on room air. I feel this is likely merchandising representative of patient being off oxygen coming from the car, registration, into his room without oxygen, then ambulating to his bed. Shortly thereafter, patient able to rest on his 4 L nasal cannula. Breathing 18-20 times a minute, remains hypertensive. Independent interpretation of EKG shows sinus tachycardia [address] changes concerning for acute ischemia, but patient does have T wave inversions in 2, 3, aVF without reciprocal elevations. AL 171, QRS 80, QTc 410. Workup independently interpreted and significant for nonactionable CBC. Patient's VBG nonactionable with normal pH, normal CO2 and oxygen. Lactate negative. Bicarb normal. Chemistry concerning for DELLA creatinine 1.7, BUN 25. BNP elevated at 15,000 and troponin elevated at 0.04, I feel this is likely merchandising representative of type II NSTEMI versus stress troponinemia. On independent interpretation of imaging, patient has right lower lobe infiltrate obscuring diaphragm concerning for pneumonia, but also has pulmonary edema and edematous fissures. See radiology read for full review of final results. Heart score 7. Patient was given 60 mg IV Lasix, ceftriaxone and azithromycin.On reevaluation, patient remains hypertensive, hospitalist was contacted and case was discussed at length. Patient to be admitted. Given patient presentation, workup, history, this most likely represents acute CHF, new onset with exacerbation, as well as right lower lobe pneumonia in the setting of COPD exacerbation. Because patient high risk for clinical decompensation, deemed appropriate for inpatient admission. Results were relayed to patient who voiced understanding and patient was agreeable to inpatient admission and management. Patient was admitted to the hospital for further definitive management. Insurance Territory Manager disclaimer Much of this encounter note is an electronic iuss acoustic analyst spoken language to printed text. Electronic iuss acoustic analyst of the spoken language may permit errors. Although I have reviewed the note, some errors may still exist.
--- NOTE | 2024-01-11 20:01 | ECG_ITS ---
APPROVED REPORT Exam: Resting ECG HR:101 bpm ECG Measurements Heart Rate 101 AXES AZ 171 P 69 QRSd 80 QRS -66 QT 352 T 71 QTc 410 Conclusion SINUS TACHYCARDIA WITH OCCASIONAL VENTRICULAR PREMATURE COMPLEXES LEFT ATRIAL ENLARGEMENT [-0.15mV P-WAVE IN V1/V2] LOW QRS VOLTAGE IN EXTREMITY LEADS [QRS DEFLECTION < 0.5 mV IN LIMB LEADS] ABNORMAL ECG Electronically signed by : JOVANI RYAN, 01/13/2024 07:30:37
[2024-01-11] MEDS: METHYLPREDNISOLONE SOD SUCC 125MG VIAL 125 MG IV (20:49)
[2024-01-11] MEDS: CEFTRIAXONE SODIUM 2 GM in 0.9 % SODIUM CHLORIDE 100 ML IV (20:50)
[2024-01-11 20:56] LABS: Basophils % 0.2 % (0.1-2.0); Eosinophils # 0.1 K/mm3 (0.0-0.4); Eosinophils % 2.7 % (0.1-12.0); Hematocrit 45.4 % (42.0-52.0); Hemoglobin 14.2 g/dL (14.1-18.0); Lymphocytes # 0.6 K/mm3 (0.7-4.5); Lymphocytes % 15.1 % (10-50); Mean Corpuscular HGB Conc 31.3 g/dL (31.8-35.4); Mean Corpuscular Hemoglobin 34.4 pg (27.0-31.2); Mean Corpuscular Volume 110.1 fl (80-94); Monocytes # 0.2 K/mm3 (0.1-1.0); Monocytes % 5.4 % (1.7-9.3); Neutrophils # 3.2 K/mm3 (1.8-7.8); Neutrophils % 76.6 % (37.0-80.0); Platelet Count 114 K/mm3 (142-424); Red Blood Count 4.12 M/mm3 (4.60-6.20); Red Cell Distribution Width 16.3 % (11.5-17.5); White Blood Count 4.1 K/mm3 (4.8-10.8)
[2024-01-11 20:57] LABS: VBG HCO3 22.1 mmol/L (23-30); VBG Oxygen Saturation 54.5 % (50-70); VBG PCO2 43.3 mmol/L (35-51); VBG PH 7.33 mmol/L (7.31-7.41); VBG PO2 31.3 mmol/L (28-40); VBG Total CO2 23.4 mmol/L (23-27)
[2024-01-11 20:59] LABS: Chloride 99 mmol/L (98-107)
[2024-01-11 21:00] LABS: Albumin Level 4.8 g/dl (3.5-5.0); Potassium 4.2 mmoL/L (3.5-5.1); Sodium 136 mmol/L (136-145)
[2024-01-11 21:03] LABS: Alanine Aminotransferase 35 U/L (12-78); Albumin/Globulin Ratio 1.5 (1.1-1.8); Alkaline Phosphatase 133 U/L (38-126); Anion Gap 15.2 mEq/L (5-15); Aspartate Amino Transferase 31 U/L (17-59); Bilirubin,Total 1.6 mg/dl (0.2-1.3); Blood Urea Nitrogen 25 mg/dl (9-20); Calcium 9.3 mg/dl (8.4-10.2); Carbon Dioxide 26 mmol/L (22.0-30.0); Creatinine Clearance Estimated 33 mL/min (50-200); Estimated Glomerular Filt Rate 40 ml/min (>60); GFR (African American) 48 ML/MIN (>60); Globulin 3.3 g/dL (1.3-3.2); Glucose 123 mg/dl (74-100); Lactic Acid 1.3 mmol/L (0.7-2.1); Magnesium 1.9 mg/dl (1.6-2.3); Total Protein,Serum 8.1 g/dl (6.3-8.2)
[2024-01-11 21:05] VITALS: PULSE 88; PULSE 94
[2024-01-11] MEDS: IPRATROPIUM/ALBUTEROL 3 ML NEB 9 ML IH (21:05)
[2024-01-11 21:10] LABS: Activated Partial Thrombo Time 30.8 seconds (22.8-30.6)
[2024-01-11 21:13] LABS: NT Pro Brain Natriuretic Pep. 15000 pg/mL (0-125)
[2024-01-11 21:15] LABS: Troponin I 0.04 ng/ml (0.00-0.034)
[2024-01-11] MEDS: AZITHROMYCIN 500 MG in 0.9 % SODIUM CHLORIDE 250 ML 250 MG IV (21:30)
--- NOTE | 2024-01-11 21:30 | PC.NURSE ---
Unable to read pulse ox with multiple attempts; VBG immediately obtained and viewed by MD. Patient not in distress. Pulse ox read 66% for a brief second without a good waveform but the only time a number was shown on the monitor. RT also attempted.
[2024-01-11] MEDS: FUROSEMIDE 40MG/4ML VIAL 60 MG IV (21:32)
[2024-01-11 21:45] VITALS: BP 156/95; PULSE 103; RESP 20; TEMP 36.9; O2SAT 77
[2024-01-11 21:52] VITALS: BP 187/116; PULSE 94; RESP 24; TEMP 36.5
--- NOTE | 2024-01-11 21:52 | PC.NURSE ---
Report called to Med/varnish finisher
[2024-01-11 22:00] VITALS: BMI 17.0
--- NOTE | 2024-01-11 22:15 | P.HP_ITS ---
History of Present Illness *Admission Date: 01/11/24 *Reason for visit:: COPD exacerbation, CHF exacerbation, DELLA *History of present illness: Carter Ching is a 73-year-old male with a medical history significant for COPD (baseline 4 L during the day, 2 L at night) who presented to the ED due to worsening shortness over the past 2 weeks. He states ever since he had been hospitalized for pneumonia earlier this year he has been oxygen dependent. However, he states over the past 2 weeks he has been wheezing, and having green productive cough with worsening shortness of breath. He also notes he has been wheezing more, but has been adherent with his home inhalers. He denies fevers /chills, upper respiratory symptoms, chest pain, leg swelling over this course. Denies previous cardiac history including [facility], cardiac surgery, stents. He also states that his appetite has not been great over the past 2 months and that he generally does not drink much water. He also endorses to currently smoking 1 pack a day, but has decreased since starting medication to help with cravings (cannot recall the name). Workup in the ED significant for BNP 15,000, leukopenia WBC 4.1, MCV 110, platelets 114, creatinine 1.7 (baseline around 1.0), total bilirubin 1.6, ALP 133. VBG unremarkable. CXR significant for bibasilar reticular opacities, right worse than left, and small bilateral pleural effusions. He was given Solu-Medrol 125 mg, ceftriaxone, DuoNeb, azithromycin, IV Lasix 60 mg. Patient continued to be dyspneic with pursed lip breathing. Case discussed with ED provider and decision was made to admit patient for new heart failure exacerbation, COPD exacerbation, EDLLA, failure to thrive. [facility] Disclaimer: The information contained in this section may have been updated after the patient was seen, as this information can be updated by other users. Medical History (Updated 01/11/24 @ 22:31 by Jenny Weeks RN) Hypertension Emphysema lung COPD (chronic obstructive pulmonary disease) Surgical History (Updated 01/11/24 @ 22:31 by Jenny Weeks RN) History of removal of cyst Social History (Updated 01/11/24 @ 22:32 by Jenny Weeks RN) Smoking Status: Current every day smoker tobacco type: cigarettes packs per day: 1 alcohol intake: never current occupational status: other Travel in the last 8 weeks: None Meds Home Medications and Allergies Home Medications ?Medication ?Instructions ?Recorded ?Confirmed ?Type albuterol sulfate 90 mcg/actuation 4 inh inhalation Q4H PRN shortness 04/09/23 01/11/24 Rx aerosol inhaler of breath or wheezing #8.5 grams benzonatate 100 mg capsule 100 mg PO TID PRN cough 5 days #20 04/09/23 01/11/24 Rx caps mecobalamin (vitamin B12) 1,000 1,000 mcg PO DAILY 01/11/24 01/11/24 History mcg chewable tablet (B12 Active) New Prescriptions to Start Prescriptions: Allergies Allergy/AdvReac Type Severity Reaction Status Date / Time No Known Allergies Allergy Verified 01/15/21 17:44 Exam Data for Last 24 hours Vital signs and Labs for Last 24 Hours: Temp Pulse Resp BP Pulse Ox O2 Del Method O2 Flow Rate 97.7 F 94 H 24 187/116 H 66 L Nasal Cannula 4 01/11/24 21:52 01/11/24 21:52 01/11/24 21:52 01/11/24 21:52 01/11/24 19:50 01/11/24 21:52 01/11/24 21:52 Laboratory Results - last 24 hr 01/11/24 20:00: VBG pH 7.33, VBG pCO2 43.3, VBG pO2 31.3, VBG HCO3 22.1 L, VBG Total CO2 23.4, VBG O2 Saturation 54.5, VBG Base Excess -4.0 L, VBG Lactic Acid 2.0 01/11/24 20:45: WBC 4.1 L, RBC 4.12 L, Hgb 14.2, Hct 45.4, MCV 110.1 H, MCH 34.4 H, MCHC 31.3 L, RDW 16.3, Plt Count 114 L, MPV 10.0, Neut % (Auto) 76.6, Lymph % (Auto) 15.1, [place] % (Auto) 5.4, Eos % (Auto) 2.7, Baso % (Auto) 0.2, Neut # (Auto) 3.2, Lymph # (Auto) 0.6 L, [place] # (Auto) 0.2, Eos # (Auto) 0.1, Baso # (Auto) 0.0, APTT 30.8 H, Sodium 136, Potassium 4.2, Chloride 99, Carbon Dioxide 26, Anion Gap 15.2 H, BUN 25 H, Creatinine 1.70 H, Estimated Creat Clear 33, Estimated GFR 40 L, Est GFR ( Amer) 48 L, Glucose 123 H, Lactate 1.3, Calcium 9.3, Magnesium 1.9, Total Bilirubin 1.6 H, AST 31, ALT 35, Alkaline Phosphatase 133 H, Troponin I 0.04 H, NT-Pro-B Natriuret Pep 10640 H, Total Protein 8.1, Albumin 4.8, Globulin 3.3 H, Albumin/Globulin Ratio 1.5 I & O for Last 24 hours: Intake & Output 01/08/24 01/09/24 01/10/24 01/11/24 23:59 23:59 23:59 23:59 Weight 58.967 kg Constitutional Constitutional: no acute distress and cachectic *Routine HEENT Exam Head: Present normocephalic Eye: Present EOMI and PERRL ENT: Present mucous membranes moist *Routine Neck Exam Neck: Present supple; Absent lymphadenopathy *Routine Respiratory Exam Respiratory: Present crackles and diminished air movement; Absent CTA bilaterally or wheezes Comments: Mild bibasilar crackles. Diminished air movement *Routine Cardiovascular Exam Cardiovascular: Present RRR *Routine Abdominal Exam Abdominal: Present soft and normoactive bowel sounds; Absent tenderness *Routine Rectal Exam Rectal:: deferred *Routine Genitalia Exam Genitalia:: deferred *Routine Extremities Exam Extremities: Absent cyanosis, clubbing or edema *Routine Skin Exam Skin: Present warm; Absent rash *Routine Neurological Exam Neurological: Present alert and oriented X3 Assessment and Plan *Assessment and plan (1) COPD exacerbation: Status: Acute Category: Medical Code(s): J44.1 - Chronic obstructive pulmonary disease with (acute) exacerbation (2) Pneumonia: Status: Acute Category: Medical Code(s): J18.9 - Pneumonia, unspecified organism (3) New onset of congestive heart failure: Status: Acute Category: Medical Code(s): I50.9 - Heart failure, unspecified Plan Carter Ching is a 73-year-old male with a medical history significant for COPD (baseline 4 L during the day, 2 L at night) who presented to the ED due to worsening shortness over the past 2 weeks. He states ever since he had been hospitalized for pneumonia earlier this year he has been oxygen dependent. However, he states over the past 2 weeks he has been wheezing, and having green productive cough with worsening shortness of breath. He also notes he has been wheezing more, but has been adherent with his home inhalers. He also states that his appetite has not been great over the past 2 months and that he generally does not drink much water. He also endorses to currently smoking 1 pack a day, but has decreased since starting medication to help with cravings (cannot recall the name). Workup in the ED significant for BNP 15,000, leukopenia WBC 4.1, MCV 110, platelets 114, creatinine 1.7 (baseline around 1.0), total bilirubin 1.6, ALP 133. VBG unremarkable. CXR significant for bibasilar reticular opacities, right worse than left, and small bilateral pleural effusions. He was given Solu -Medrol 125 mg, ceftriaxone, DuoNeb, azithromycin, IV Lasix 60 mg. Patient continued to be dyspneic with pursed lip breathing. Case discussed with ED provider and decision was made to admit patient for new heart failure exacerbation, COPD exacerbation, DELLA, failure to thrive. #Heart failure exacerbation, unknown type, new onset #Bilateral pulmonary edema #Bilateral small pleural effusions ? Endorses 2 months of worsening shortness of breath, especially in the past 2 weeks. Green productive cough. ? Does not specifically endorse orthopnea, PND. No leg edema. ? No cardiac history including MIs, stents. ? BNP 15,000 on admission with bilateral pulmonary edema, pleural effusions, dyspneic on 4 L. ? IV Lasix 40 mg twice daily. Follow urine output, renal function, electrolytes. IV Lasix 60 mg given in the ED. ? ECHO pending. ? Cardiology consulted, pending recommendations. ? Risk stratification with morning A1c, TSH, lipid panel. ? Strict YOSEPH's, salt/fluid restriction, bed elevation. #COPD exacerbation #Suspected community-acquired pneumonia ? Endorses increased wheezing, productive cough over the past 2 weeks. States he has been adherent to home inhalers. ? CXR does show bibasilar opacities, right worse than left suggesting possible underlying pneumonia especially with a history of pneumonia. Leukopenic at this time. ? Baseline requires 4 L during the day, 2 L at night. ? VBG did not show acute CO2 retention. ? DuoNebs scheduled and as needed. ? Prednisone/steroids day 04/18. Solu-Medrol given in the ED. ? Ceftriaxone, azithromycin day 04/18 for suspected pneumonia. ? Follow-up respiratory panel. #Cachexia, decreased appetite #Failure to thrive #Current smoker #Hyperbilirubinemia #Elevated ALP ? Patient has a longstanding history of smoking, currently smokes 1 pack a day. ? Mild increase in total bilirubin 1.6, ALP 133. Could be from congestive hepatopathy and/or bone demineralization, but cannot rule out CBD obstruction from pancreatic mass in the setting of smoking. ? He also endorses recent decreased appetite over the past 2 months, weight loss. ? BMI 17.1 on admission. ? Given this history, will need to rule out lung and abdominal cancer. ? Follow-up CT chest/abdomen/pelvis in the morning. ? Follow-up morning directed bilirubin, TSH. ? Counseled on smoking cessation. Nicotine patch as needed. ? Nutrition consulted, pending recommendations. #DELLA ? Creatinine 1.7, baseline 1.0 in March 2023. ? Could be cardiorenal in the setting of new heart failure diagnosis. However, cannot rule out CKD in the setting of uncontrolled blood pressures. ? Diuresis as above. Continue to monitor renal function. #Elevated troponin ? Initial troponin 0.4. EKG does not show acute ischemic findings. No chest pain. ? Likely demand ischemia from heart failure exacerbation. ? Continue to follow troponins. #Elevated blood pressure ? Presented with BP 180s over 110s. Improved to 150s over 90s with diuresis. ? Follow-up ECHO, may need GDMT for possible HFrEF. If not, consider starting amlodipine. Avoid nephrotoxic medications. #Macrocytosis without anemia ? MCV 110.1 on admission. Patient states he used to drink alcohol, but has not drank much in the past month. ? Also endorses significant decreased appetite in the past 2 months alluding to possible vitamin deficiencies. ? Follow-up folate, vitamin B12, vitamin D in the morning. CODE STATUS: Full code DVT prophylaxis: Heparin SQ 3 times daily given DELLA
--- NOTE | 2024-01-11 22:26 | PC.NURSE ---
pt arrived to floor via wheelchair @22:02.
--- NOTE | 2024-01-11 22:41 | PC.NURSE ---
Pt states he takes a blood pressure pill and a smoking cessation pill but is unable to recall names of those medications at this time.
[2024-01-11] MEDS: HEPARIN SODIUM 5,000 UNIT/ML VIAL 5000 UNIT SQ (22:42)
[2024-01-11] MEDS: MAGNESIUM SULFATE IN WATER 2 GM/50 ML PIGGYBACK IV (23:04)
[2024-01-11 23:28] LABS: Troponin I 0.03 ng/ml (0.00-0.034)
[2024-01-12] VITALS (11 sets, daily range): BP systolic 145–160; BP diastolic 76–96; PULSE 70–105; RESP 16–20; TEMP 36.3–36.8; O2SAT 93–100; BMI 16.7
[2024-01-12 00:11] LABS: ABG Base Excess -2.2 mmol/L (-2.4-2.3); ABG HCO3 22.2 mmhg (22.0-26.0); ABG Oxygen Saturation 81 % (90-100); ABG PCO2 34.7 mmhg (35.0-45.0); ABG PH 7.42 mmol/L (7.35-7.45); ABG TCO2 23.3 mmhg (23-27)
[2024-01-12 00:22] LABS: Allen's Test Acceptable; Oxygen 4LNC %; Source Right Radial
[2024-01-12 00:23] LABS: ABG PO2 45.1 mmhg (80-100)
[2024-01-12] MEDS: IPRATROPIUM/ALBUTEROL 3 ML NEB IH ×4 (00:34→18:27)
[2024-01-12 01:55] LABS: Troponin I 0.03 ng/ml (0.00-0.034)
--- NOTE | 2024-01-12 04:13 | PC.NURSE ---
73 yo male pt A/O X 4. Pt unable to tolerate ambulating to BR due to 02 sats dropping to 70s. Pt voiding using urinal. He is currently tolerating 02 at 4 liters per nc but earlier in the shift RT increased 02 to 9 liters per venti mask due to pt being unable to maintain sats. BP has been elevated at times during the night, aware. Last BP had improved. Pt has tolerated diet. Up to use urinal or BSC X 1 assist
[2024-01-12] MEDS: HEPARIN SODIUM 5,000 UNIT/ML VIAL 5000 UNIT SQ ×3 (05:24→20:54)
[2024-01-12 06:18] LABS: Adenovirus,PCR Not Detected (NotDetected); Bordetella Pertussis Not Detected (NotDetected); Chlamydophila Pneumoniae, PCR Not Detected (NotDetected); Coronavirus 19, PCR Not Detected (NotDetected); Coronavirus 229E Not Detected (NotDetected); Coronavirus NL63 Not Detected (NotDetected); Coronavirus OC43 Not Detected (NotDetected); Coronovirus HKU1,PCR Not Detected (NotDetected); Human Metapneumovirus Not Detected (NotDetected); Influenza A, PCR Not Detected (NotDetected); Influenza AH1, 2009 Not Detected (NotDetected); Influenza AH1, PCR Not Detected (NotDetected); Influenza AH3,PCR Not Detected (NotDetected); Influenza B, PCR Not Detected (NotDetected); Mycoplasma Pneumoniae, PCR Not Detected (NotDetected); Parainfluenza 1, PCR Not Detected (NotDetected); Parainfluenza 2, PCR Not Detected (NotDetected); Parainfluenza 3, PCR Not Detected (NotDetected); Parainfluenza 4, PCR Not Detected (NotDetected); Respiratory Syncytial Virus Not Detected (NotDetected); Rhinovirus/Enterovirus Not Detected (NotDetected)
[2024-01-12 06:27] LABS: Chloride 99 mmol/L (98-107); Potassium 3.9 mmoL/L (3.5-5.1); Sodium 136 mmol/L (136-145)
[2024-01-12 06:29] LABS: Alanine Aminotransferase 31 U/L (12-78); Alkaline Phosphatase 125 U/L (38-126); Anion Gap 14.9 mEq/L (5-15); Aspartate Amino Transferase 27 U/L (17-59); Bilirubin,Total 1.1 mg/dl (0.2-1.3); Blood Urea Nitrogen 28 mg/dl (9-20); Carbon Dioxide 26 mmol/L (22.0-30.0); Creatinine Clearance Estimated 31 mL/min (50-200); Estimated Glomerular Filt Rate 40 ml/min (>60); GFR (African American) 48 ML/MIN (>60)
[2024-01-12 06:30] LABS: Albumin/Globulin Ratio 1.3 (1.1-1.8); Chol/HDL Ratio 3.1 (1-3.5); Cholesterol 123 mg/dl (140-200); Globulin 3.2 g/dL (1.3-3.2); Glucose 118 mg/dl (74-100); HDL Cholesterol 40 mg/dl (40-60); Magnesium 2.2 mg/dl (1.6-2.3); Total Protein,Serum 7.2 g/dl (6.3-8.2); Triglycerides 53 mg/dl (30-150); VLDL Cholesterol 11 mg/dL (0-40)
[2024-01-12 06:37] LABS: Basophils % 0.1 % (0.1-2.0); Eosinophils % 0.7 % (0.1-12.0); Hematocrit 42.9 % (42.0-52.0); Hemoglobin 13.4 g/dL (14.1-18.0); Lymphocytes # 0.3 K/mm3 (0.7-4.5); Lymphocytes % 12.8 % (10-50); Mean Corpuscular HGB Conc 31.3 g/dL (31.8-35.4); Mean Corpuscular Volume 108.5 fl (80-94); Mean Platelet Volume 9.5 fl (7.4-10.4); Monocytes # 0.1 K/mm3 (0.1-1.0); Neutrophils # 2.2 K/mm3 (1.8-7.8); Neutrophils % 82.5 % (37.0-80.0); Platelet Count 108 K/mm3 (142-424); Red Blood Count 3.95 M/mm3 (4.60-6.20); Red Cell Distribution Width 16.2 % (11.5-17.5); White Blood Count 2.7 K/mm3 (4.8-10.8)
[2024-01-12 06:41] LABS: Direct LDL Cholesterol 55.57 mg/dL (100-129)
[2024-01-12 06:46] LABS: Bilirubin,Direct 0.5 mg/dl (0.0-0.4)
[2024-01-12 06:58] LABS: Thyroid Stimulating Hormone 0.69 uIU/mL (0.465-4.68)
--- NOTE | 2024-01-12 07:00 | CT_ITS ---
FINAL REPORT TECHNIQUE: Axial images through the abdomen and pelvis were performed without contrast. This study was performed with techniques to keep radiation doses as low as reasonably achievable, (ALARA). Individualized dose reduction techniques using automated exposure control or adjustment of mA and/or kV according to the patient's size were employed. CLINICAL HISTORY: Evaluate for abdominal cancer COMPARISON: 12/19/2017 (prior report not available for comparison) FINDINGS: Abdomen: The overall image quality is somewhat limited without the administration of intravenous contrast. The liver parenchyma is homogeneous. The gallbladder is present, without evidence of biliary ductal dilatation. Calcified granulomas are present in the spleen. The pancreas, adrenals and kidneys are unremarkable, other than a 2.7 cm cyst in the lower pole of the right kidney. Pelvis: The urinary bladder is unremarkable. There is a moderate amount of stool present in the colon. The appendix is not visualized. There is a moderate amount of free fluid present in the pelvis, which measures 14 Hounsfield units, indicating that it is not simple fluid. This fluid is of uncertain etiology. IMPRESSION: Moderate amount of free fluid is present in the pelvis, which does not have imaging characteristics consistent with simple fluid. This is of uncertain etiology. A moderate amount of stool is present in the colon. Reviewed, Interpreted and Dictated by Magnus Anna MD Transcribed by Gali Bateman Authenticated and . [facility]
--- NOTE | 2024-01-12 07:00 | CT_ITS ---
FINAL REPORT TECHNIQUE: Axial images through the chest were performed by computed tomography. This study was performed with techniques to keep radiation doses as low as reasonably achievable, (ALARA). Individualized dose reduction techniques using automated exposure control or adjustment of mA and/or kV according to the patient's size were employed. CLINICAL HISTORY: Decreased appetite, weight loss, current smoker COMPARISON: 12/19/2017 (no prior report available) FINDINGS: CT CHEST WITHOUT CONTRAST: Overall exam quality is somewhat limited without the use of intravenous contrast. There are a few calcified right paratracheal and hilar nodes present. There is a moderate to large right pleural effusion, and a small left pleural effusion. The right pleural effusion may be amenable to thoracentesis. Bibasilar atelectasis is present. There are changes of centrilobular emphysema. The heart size is normal. IMPRESSION: Moderate to large right pleural effusion, and a small left pleural effusion with bibasilar atelectasis. The right pleural effusion may be amenable to thoracentesis. Changes of centrilobular emphysema. Reviewed, Interpreted and Dictated by Magnus Anan MD Transcribed by Gali Bateman Authenticated and [facility]
[2024-01-12 07:08] LABS: Hemoglobin A1C 5.2 % (4.0-6.0)
--- NOTE | 2024-01-12 07:41 | EXP.ACUTE.PN ---
Subjective *Date: 01/12/24 *Time: 17:11 Interval history: Patient states he is feeling little better this morning. Continues to necessitate oxygen, currently on 4 L. Admits to history of crack cocaine usage years ago, nothing recent. No known history of heart attacks. Medical Exam Vital signs and Labs for Last 24 Hours: Vital Signs Temp Pulse Pulse Resp BP BP Pulse Ox 01/12/24 06:59 01/12/24 06:13 100 01/12/24 05:00 01/12/24 04:00 98.2 F 89 16 148/76 H 97 01/12/24 04:00 84 01/12/24 03:00 01/12/24 02:47 100 01/12/24 01:00 01/12/24 00:34 101 H 01/12/24 00:34 105 H 01/12/24 00:34 98 01/12/24 00:00 97 H 01/12/24 00:00 97.8 F 97 H 20 156/96 H 100 01/12/24 00:00 97.8 F 97 H 20 156/96 H 100 01/11/24 23:20 01/11/24 23:00 01/11/24 21:52 97.7 F 94 H 24 187/116 H 01/11/24 21:45 98.5 F 103 H 20 156/95 H 77 L 01/11/24 21:05 88 01/11/24 21:05 94 H 01/11/24 21:05 01/11/24 19:50 97.7 F 88 28 H 185/95 H 66 L O2 Del Method O2 Flow Rate FiO2 01/12/24 06:59 Nasal Cannula 4 01/12/24 06:13 Nasal Cannula 3 01/12/24 05:00 Nasal Cannula 4 01/12/24 04:00 Nasal Cannula 4 01/12/24 04:00 01/12/24 03:00 Nasal Cannula 4 01/12/24 02:47 Nasal Cannula 4 01/12/24 01:00 Venturi Mask 9 01/12/24 00:34 01/12/24 00:34 01/12/24 00:34 Venturi Mask 9 35 01/12/24 00:00 01/12/24 00:00 Venturi Mask 01/12/24 00:00 Venturi Mask 4 09/29/24 23:20 Nasal Cannula 4 01/11/24 23:00 Nasal Cannula 4 01/11/24 21:52 Nasal Cannula 4 01/11/24 21:45 Nasal Cannula 4 01/11/24 21:05 01/11/24 21:05 01/11/24 21:05 Nasal Cannula 4 01/11/24 19:50 Room Air Intake and Output 01/11/24 01/11/24 01/12/24 15:59 23:59 07:59 Intake Total 150 / 150 Output Total 0 / 200 450 / 450 Balance 0 / -50 -300 / -300 Intake: Intake, Total IV Amount 150 / 150 Ceftriaxone Sodium 2 gm In 0.9 100 / 100 % Sodium Chloride 100 ml @ 200 mls/hr IV ONCE ONE Rx#:[id number] Magnesium Sulfate in Water 2 gm 50 / 50 In 50 ml @ 50 mls/hr IV ONCE ONE Rx#:[id number] Output: Output, Urine Amount 0 / 200 450 / 450 Other: Weight 57.198 kg 55.883 kg Patient Weight 01/12/24 23:59 Weight 55.883 kg Laboratory Results - last 24 hr 01/11/24 20:00: VBG pH 7.33, VBG pCO2 43.3, VBG pO2 31.3, VBG HCO3 22.1 L, VBG Total CO2 23.4, VBG O2 Saturation 54.5, VBG Base Excess -4.0 L, VBG Lactic Acid 2.0 01/11/24 20:45: WBC 4.1 L, RBC 4.12 L, Hgb 14.2, Hct 45.4, MCV 110.1 H, MCH 34.4 H, MCHC 31.3 L, RDW 16.3, Plt Count 114 L, MPV 10.0, Neut % (Auto) 76.6, Lymph % (Auto) 15.1, [place] % (Auto) 5.4, Eos % (Auto) 2.7, Baso % (Auto) 0.2, Neut # (Auto) 3.2, Lymph # (Auto) 0.6 L, [place] # (Auto) 0.2, Eos # (Auto) 0.1, Baso # (Auto) 0.0, APTT 30.8 H, Sodium 136, Potassium 4.2, Chloride 99, Carbon Dioxide 26, Anion Gap 15.2 H, BUN 25 H, Creatinine 1.70 H, Estimated Creat Clear 33, Estimated GFR 40 L, Est GFR ( Amer) 48 L, Glucose 123 H, Lactate 1.3, Calcium 9.3, Magnesium 1.9, Total Bilirubin 1.6 H, AST 31, ALT 35, Alkaline Phosphatase 133 H, Troponin I 0.04 H, NT-Pro-B Natriuret Pep 26402 H, Total Protein 8.1, Albumin 4.8, Globulin 3.3 H, Albumin/Globulin Ratio 1.5 01/11/24 22:55: Troponin I 0.03 01/11/24 23:57: Specimen Source Right radial, O2 % 4lnc, ABG pH 7.42, ABG pCO2 34.7 L, ABG pO2 45.1 L, ABG HCO3 22.2, ABG Total CO2 23.3, ABG O2 Saturation 81 L*, ABG Base Excess -2.2, Rudy Test Acceptable 01/12/24 01:30: Troponin I 0.03 01/12/24 05:26: WBC 2.7 L D, RBC 3.95 L, Hgb 13.4 L, Hct 42.9, MCV 108.5 H, MCH 34.0 H, MCHC 31.3 L, RDW 16.2, Plt Count 108 L, MPV 9.5, Neut % (Auto) 82.5 H, Lymph % (Auto) 12.8, [place] % (Auto) 4.0, Eos % (Auto) 0.7, Baso % (Auto) 0.1, Neut # (Auto) 2.2, Lymph # (Auto) 0.3 L, [place] # (Auto) 0.1, Eos # (Auto) 0.0, Baso # (Auto) 0.0, Sodium 136, Potassium 3.9, Chloride 99, Carbon Dioxide 26, Anion Gap 14.9, BUN 28 H, Creatinine 1.70 H, Estimated Creat Clear 31, Estimated GFR 40 L, Est GFR ( Amer) 48 L, Glucose 118 H, Hemoglobin A1c 5.2, Calcium 9.0, Magnesium 2.2 D, Total Bilirubin 1.1, Direct Bilirubin 0.5 H, AST 27, ALT 31, Alkaline Phosphatase 125, Total Protein 7.2, Albumin 4.0 D, Globulin 3.2, Albumin/Globulin Ratio 1.3, Triglycerides 53, Cholesterol 123 L, LDL Cholesterol Direct 55.57 L, VLDL Cholesterol 11, HDL Cholesterol 40, Cholesterol/HDL Ratio 3.1, TSH 0.69 I & O for Labs for Last 24 Hours: Intake & Output 01/09/24 01/10/24 01/11/24 01/12/24 23:59 23:59 23:59 23:59 Intake Total 150 / 150 Output Total 0 / 200 450 / 450 Balance 0 / -50 -300 / -300 Weight 57.198 kg 55.883 kg Constitutional: Present no acute distress, cachectic, chronically ill appearing and cooperative Head: Present atraumatic and normocephalic ENT: Present normal exam Respiratory: Present normal respiratory effort; Absent rhonchi, wheezes or crackles Cardiac: Present Reg Rate and Rhythm GI: Present soft and normal bowel sounds; Absent distention or tenderness Extremities: Present normal inspection and full ROM; Absent edema Skin: Present intact; Absent erythema Neuro: Present Grossly Intact, alert, awake, oriented x 3 and moves all extremities Assessment and Plan *Assessment and plan (1) New onset of congestive heart failure: Status: Acute Category: Medical Code(s): I50.9 - Heart failure, unspecified (2) HFrEF (heart failure with reduced ejection fraction): Status: Acute Category: Medical Code(s): I50.20 - Unspecified systolic (congestive) heart failure (3) Pulmonary arterial hypertension: Status: Acute Category: Medical Code(s): I27.21 - Secondary pulmonary arterial hypertension (4) COPD exacerbation: Status: Acute Category: Medical Code(s): J44.1 - Chronic obstructive pulmonary disease with (acute) exacerbation (5) DELLA (acute kidney injury): Status: Acute Category: Medical Code(s): N17.9 - Acute kidney failure, unspecified (6) Pneumonia: Status: Acute Category: Medical Code(s): J18.9 - Pneumonia, unspecified organism (7) Tobacco use disorder: Status: Acute Category: Medical Code(s): F17.200 - Nicotine dependence, unspecified, uncomplicated (8) Cachexia: Status: Acute Category: Medical Code(s): R64 - Cachexia (9) Chronic hypoxemic respiratory failure: Status: Chronic Category: Medical Code(s): J96.11 - Chronic respiratory failure with hypoxia (10) Severe protein-calorie malnutrition: Status: Acute Category: Medical Code(s): E43 - Unspecified severe protein-calorie malnutrition Plan Carter Ching is a 73-year-old male with a medical history significant for COPD (baseline 4 L during the day, 2 L at night) who presented to the ED due to worsening shortness over the past 2 weeks. He states ever since he had been hospitalized for pneumonia earlier this year he has been oxygen dependent. However, he states over the past 2 weeks he has been wheezing, and having green productive cough with worsening shortness of breath. He also notes he has been wheezing more, but has been adherent with his home inhalers. He also states that his appetite has not been great over the past 2 months and that he generally does not drink much water. He also endorses to currently smoking 1 pack a day, but has decreased since starting medication to help with cravings (cannot recall the name). Workup in the ED significant for BNP 15,000, leukopenia WBC 4.1, MCV 110, platelets 114, creatinine 1.7 (baseline around 1.0), total bilirubin 1.6, ALP 133. VBG unremarkable. CXR significant for bibasilar reticular opacities, right worse than left, and small bilateral pleural effusions. He was given Solu-Medrol 125 mg, ceftriaxone, DuoNeb, azithromycin, IV Lasix 60 mg. Patient continued to be dyspneic with pursed lip breathing. Case discussed with ED provider and decision was made to admit patient for new heart failure exacerbation, COPD exacerbation, DELLA, failure to thrive. Preliminary echo read this morning shows reduced ejection. Pulmonology and cardiology to evaluate today. Continues to require inpatient management. Problems addressed as follows: #Acute HFrEF # Severe right heart failure with pulmonary artery hypertension #Bilateral pulmonary edema #Bilateral small pleural effusions ? No cardiac history including MIs, stents. ? BNP 15,000 on admission with bilateral pulmonary edema, pleural effusions, dyspneic on 4 L. Continue supplemental oxygen as required for goal sats greater 90%. ? IV Lasix 40 mg twice daily. Follow urine output, renal function, electrolytes. ? Cardiology consulted, Discussed case this morning, recommend to Initiate Entresto 24/26 mg twice daily, spironolactone 25 mg daily, continue Lasix 40 mg IV twice daily, initiate Jardiance 10 mg daily, aspirin 81 mg daily, and Lipitor 80 mg nightly. - A1c normal at 5.2, TSH normal at 0.7. lipid panel -Echo with the following: EF 45%. Severe RV dilation with reduced RV function. Elevated RVSP greater than 60. Continue aggressive diuresis. -Discussed case with pulmonology, recommends continuing DuoNebs every 6 hours, initiate Stiolto. Oxygen as needed for goal sats greater 90%. Will hold on thoracentesis today #Hx of Substance Use - prior heavy ETOH - last drink at least >1 mo ago per pt - remote hx of illicit substance use - marijuana and crack cocaine #COPD exacerbation #Suspected community-acquired pneumonia ? Endorses increased wheezing, productive cough over the past 2 weeks. States he has been adherent to home inhalers. ? CXR does show bibasilar opacities, right worse than left suggesting possible underlying pneumonia especially with a history of pneumonia. Leukopenic at this time. ? Baseline requires 4 L during the day, 2 L at night. ? VBG did not show acute CO2 retention. ? DuoNebs scheduled and as needed. ? Prednisone/steroids day 04/18. Solu-Medrol given in the ED. ? Ceftriaxone, azithromycin day 1 for suspected pneumonia. ? Follow-up respiratory panel. #Cachexia, decreased appetite # Severe protein calorie malnutrition #Failure to thrive #Current smoker #Hyperbilirubinemia #Elevated ALP ? Patient has a longstanding history of smoking, currently smokes 1 pack a day. ? Mild increase in total bilirubin 1.6, ALP 133. Could be from congestive hepatopathy and/or bone demineralization, but cannot rule out CBD obstruction from pancreatic mass in the setting of smoking. ? He also endorses recent decreased appetite over the past 2 months, weight loss. ? BMI 17 on admission. ? Per review of chest imaging/CT, has emphysema. Also found to have large right pleural effusion. Do not see any obvious masses or lesions. CT abdomen found to have free fluid in the pelvis. No abnormal masses in the abdomen either or lymphadenopathy per my review. ?TSH 0.7 , A1c 5.2 - Nicotine patch as needed. ? Nutrition consulted #DELLA ? Creatinine 1.7 with BUN 28, baseline 1.0 in March 2023. -Repeat CBC, CMP, magnesium ordered. Monitoring closely given diuresis. #Macrocytosis without anemia ? MCV 110.1 on admission. Patient states he used to drink alcohol, but has not drank much in the past month. ? Also endorses significant decreased appetite in the past 2 months alluding to possible vitamin deficiencies. ? Follow-up folate, vitamin B12, vitamin D in the morning. CODE STATUS: Full code DVT prophylaxis: Heparin SQ 3 times daily given DELLA Cardiac diet
[2024-01-12] MEDS: FUROSEMIDE 40MG/4ML VIAL 40 MG IV ×2 (08:04→16:06)
[2024-01-12] MEDS: predniSONE 20MG TAB 40 MG PO (08:04)
[2024-01-12] MEDS: AZITHROMYCIN 250MG TABLET 250 MG PO (08:04)
--- NOTE | 2024-01-12 09:39 | P.CONS_ITS ---
History of Present Illness History of present illness: Mr. Machado is a 73-year-old male with reported history of tobacco abuse, current smoker, 1 to 2 packs a day COPD chronic hypoxic respiratory failure using 2 to 4 L oxygen supplementation presented to ER with worsening respiratory distress for 2 weeks and was admitted for further evaluation and management. Patient admits gradually worsening respiratory distress. Denies any lower extremity swelling. [facility] Disclaimer: The information contained in this section may have been updated after the patient was seen, as this information can be updated by other users. Medical History (Updated 01/12/24 @ 11:22 by Mario Naranjo MD) Pleural effusion, bilateral Hypertension Emphysema lung COPD (chronic obstructive pulmonary disease) Surgical History History of removal of cyst Social History Smoking Status: Current every day smoker tobacco type: cigarettes packs per day: 1 alcohol intake: never current occupational status: other Travel in the last 8 weeks: None Review of Systems Constitutional Constitutional: Reports anorexia, Reports body ache(s) and Reports fatigue Eyes Eyes: Denies eye discharge, Denies dry eyes, Denies irritation and Denies itchy eyes ENT Ears, Nose, Mouth, and Throat: Denies epistaxis, Denies facial pain, Denies lip swelling and Denies throat swelling *Cardiovascular Cardiovascular: Reports dyspnea, Reports dyspnea on exertion, Denies leg edema, Reports orthopnea and Denies pedal edema *Respiratory Respiratory: Denies change in phlegm color, Reports chest congestion, Reports cough, Reports dyspnea, Reports dyspnea on exertion, Reports excessive phlegm production, Denies hemoptysis, Denies pain on inspiration, Denies pain with cough and Denies wheezing *Gastrointestinal Gastrointestinal: Denies abdominal pain, Denies belching and Denies cramping *Musculoskeletal Musculoskeletal: Reports back pain, Reports myalgias and Reports other (No small joint swelling or Pain) Psychiatric Psychiatric: Denies homicidal ideation and Denies suicidal ideation Endocrine Endocrine: Reports fatigue and Denies heat intolerance Hematologic/Lymphatic Hematologic/Lymphatic: Denies easy bleeding and Denies lymphadenopathy Allergic/Immunologic Allergic/Immunologic: Denies itchy eyes, Denies lip swelling, Denies throat swelling and Denies wheezing Pulmonology Exam Inpatient Vital signs and Labs for Last 24 Hours: Temp Pulse Resp BP Pulse Ox O2 Del Method O2 Flow Rate 97.5 F L 94 H 20 146/84 H 95 Nasal Cannula 4 01/12/24 08:00 01/12/24 08:00 01/12/24 08:00 01/12/24 08:00 01/12/24 08:00 01/12/24 08:53 01/12/24 08:53 FiO2 35 01/12/24 00:34 Laboratory Results - last 24 hr 01/11/24 20:00: VBG pH 7.33, VBG pCO2 43.3, VBG pO2 31.3, VBG HCO3 22.1 L, VBG Total CO2 23.4, VBG O2 Saturation 54.5, VBG Base Excess -4.0 L, VBG Lactic Acid 2.0 01/11/24 20:45: WBC 4.1 L, RBC 4.12 L, Hgb 14.2, Hct 45.4, MCV 110.1 H, MCH 34.4 H, MCHC 31.3 L, RDW 16.3, Plt Count 114 L, MPV 10.0, Neut % (Auto) 76.6, Lymph % (Auto) 15.1, [place] % (Auto) 5.4, Eos % (Auto) 2.7, Baso % (Auto) 0.2, Neut # (Auto) 3.2, Lymph # (Auto) 0.6 L, [place] # (Auto) 0.2, Eos # (Auto) 0.1, Baso # (Auto) 0.0, APTT 30.8 H, Sodium 136, Potassium 4.2, Chloride 99, Carbon Dioxide 26, Anion Gap 15.2 H, BUN 25 H, Creatinine 1.70 H, Estimated Creat Clear 33, E stimated GFR 40 L, Est GFR ( Amer) 48 L, Glucose 123 H, Lactate 1.3, Calcium 9.3, Magnesium 1.9, Total Bilirubin 1.6 H, AST 31, ALT 35, Alkaline Phosphatase 133 H, Troponin I 0.04 H, NT-Pro-B Natriuret Pep 11144 H, Total Protein 8.1, Albumin 4.8, Globulin 3.3 H, Albumin/Globulin Ratio 1.5 01/11/24 22:55: Troponin I 0.03 01/11/24 23:57: Specimen Source Right radial, O2 % 4lnc, ABG pH 7.42, ABG pCO2 34.7 L, ABG pO2 45.1 L, ABG HCO3 22.2, ABG Total CO2 23.3, ABG O2 Saturation 81 L*, ABG Base Excess -2.2, Rudy Test Acceptable 01/12/24 01:30: Troponin I 0.03 01/12/24 05:26: WBC 2.7 L D, RBC 3.95 L, Hgb 13.4 L, Hct 42.9, MCV 108.5 H, MCH 34.0 H, MCHC 31.3 L, RDW 16.2, Plt Count 108 L, MPV 9.5, Neut % (Auto) 82.5 H, Lymph % (Auto) 12.8, [place] % (Auto) 4.0, Eos % (Auto) 0.7, Baso % (Auto) 0.1, Neut # (Auto) 2.2, Lymph # (Auto) 0.3 L, [place] # (Auto) 0.1, Eos # (Auto) 0.0, Baso # (Auto) 0.0, Sodium 136, Potassium 3.9, Chloride 99, Carbon Dioxide 26, Anion Gap 14.9, BUN 28 H, Creatinine 1.70 H, Estimated Creat Clear 31, Estimated GFR 40 L, Est GFR ( Amer) 48 L, Glucose 118 H, Hemoglobin A1c 5.2, Calcium 9.0, Magnesium 2.2 D, Total Bilirubin 1.1, Direct Bilirubin 0.5 H, AST 27, ALT 31, Alkaline Phosphatase 125, Total Protein 7.2, Albumin 4.0 D, Globulin 3.2, Albumin/Globulin Ratio 1.3, Triglycerides 53, Cholesterol 123 L, L DL Cholesterol Direct 55.57 L, VLDL Cholesterol 11, HDL Cholesterol 40, Cholesterol/HDL Ratio 3.1, Folate 18.60, TSH 0.69 I & O for Labs for Last 24 Hours: Intake & Output 01/09/24 01/10/24 01/11/24 01/12/24 23:59 23:59 23:59 23:59 Intake Total 490 / 490 Output Total 0 / 200 450 / 450 Balance 0 / -50 40 / 40 Weight 126 lb 1.6 oz 123 lb 3.2 oz Constitutional: Present moderate distress Head: Present normocephalic and atraumatic ENT: Present normal exam, normal oropharynx and mucous membranes moist Neck: Present normal inspection and full ROM Respiratory: Present respiratory distress, crackles, diminished air movement and able to speak in complete sentences; Absent prolonged expiratory phase or wheezes Cardiac: Present S1/S2, Tachycardia and radial pulses present GI: Present soft and distention; Absent tenderness or guarding Skin: Present intact; Absent cyanosis or jaundice Neuro: Present alert, awake and oriented x 3 Extremities: Present normal inspection; Absent clubbing or cyanosis Psychiatric: Present normal affect and cooperative Meds Home Medications and Allergies Home Medications ?Medication ?Instructions ?Recorded ?Confirmed ?Type mecobalamin (vitamin B12) 1,000 1,000 mcg PO DAILY 01/11/24 01/11/24 History mcg chewable tablet (B12 Active) New Prescriptions to Start Prescriptions: Allergies Allergy/AdvReac Type Severity Reaction Status Date / Time No Known Allergies Allergy Verified 01/15/21 17:44 Results Laboratory Findings 01/12/24 05:26 01/12/24 05:26 ABG ABG pH 7.42 mmol/L (7.35-7.45) 01/11/24 23:57 ABG pCO2 34.7 mmhg (35.0-45.0) L 01/11/24 23:57 ABG pO2 45.1 mmhg (80-100) L 01/11/24 23:57 ABG O2 Saturation 81 % (90-100) L* 01/11/24 23:57 Abnormal lab findings: Abnormal Labs 01/11/24 01/11/24 01/11/24 20:00 20:45 23:57 WBC 4.1 L RBC 4.12 L Hgb MCV 110.1 H MCH 34.4 H MCHC 31.3 L Plt Count 114 L Neut % (Auto) Lymph # (Auto) 0.6 L APTT 30.8 H ABG pCO2 34.7 L ABG pO2 45.1 L ABG O2 Saturation 81 L* VBG HCO3 22.1 L VBG Base Excess -4.0 L Anion Gap 15.2 H BUN 25 H Creatinine 1.70 H Estimated GFR 40 L Est GFR ( Amer) 48 L Glucose 123 H Total Bilirubin 1.6 H Direct Bilirubin Alkaline Phosphatase 133 H Troponin I 0.04 H NT-Pro-B Natriuret Pep 26139 H Globulin 3.3 H Cholesterol LDL Cholesterol Direct 01/12/24 05:26 WBC 2.7 L D RBC 3.95 L Hgb 13.4 L MCV 108.5 H MCH 34.0 H MCHC 31.3 L Plt Count 108 L Neut % (Auto) 82.5 H Lymph # (Auto) 0.3 L APTT ABG pCO2 ABG pO2 ABG O2 Saturation VBG HCO3 VBG Base Excess Anion Gap BUN 28 H Creatinine 1.70 H Estimated GFR 40 L Est GFR ( Amer) 48 L Glucose 118 H Total Bilirubin Direct Bilirubin 0.5 H Alkaline Phosphatase Troponin I NT-Pro-B Natriuret Pep Globulin Cholesterol 123 L LDL Cholesterol Direct 55.57 L Assessment and Plan *Assessment and plan (1) Chronic hypoxemic respiratory failure: Status: Chronic Category: Medical Code(s): J96.11 - Chronic respiratory failure with hypoxia (2) Pneumonia: Status: Acute Category: Medical Code(s): J18.9 - Pneumonia, unspecified organism (3) Pleural effusion, bilateral: Status: Acute Category: Medical Code(s): J90 - Pleural effusion, not elsewhere classified (4) Emphysema lung: Status: Acute Category: Medical Code(s): J43.9 - Emphysema, unspecified Plan Mr. Machado is a 73-year-old male with reported history of tobacco abuse, current smoker, 1 to 2 packs a day COPD chronic hypoxic respiratory failure using 2 to 4 L oxygen supplementation presented to ER with worsening respiratory distress for 2 weeks and was admitted for further evaluation and management. Patient admits gradually worsening respiratory distress. Denies any lower extremity swelling. Afebrile. Hemodynamically stable. Leukopenia. CT chest diffuse emphysematous changes. Bilateral pleural effusions large right and small left pleural effusion. Adjacent atelectasis. No dense consolidative/airspace changes noted. Interstitial edema noted. Patient admission was initiated on treatment for community-acquired and ceftriaxone azithromycin and prednisone 40 mg daily.. Also receiving diuretics. Echocardiogram pending. On examination patient noted to be in moderate respiratory distress. Saturating 99% on 3 L, weaned to room air. No significant wheezing noted on auscultation. Decreased breath in bilateral lower lung ibarra. Plan: -Continue DuoNebs every 6 hours scheduled. Using Stiolto at baseline. -Continue oxygen supplementation as needed to maintain O2 saturation above 90% -Discontinue prednisone 40 mg daily -Follow-up with echocardiogram. Continue diuretics. Will follow his clinical improvement and further determine the need for thoracentesis. No need for thoracentesis today. Thank you for involving pulmonary in this patient care. Will continue to follow.
--- NOTE | 2024-01-12 10:17 | P.CONCA_ITS ---
History of Present Illness History of Present Illness Consult date: 01/12/24 Requesting physician: Zion Denney Consult reason: congestive heart failure Chief complaint: Shortness of breath History of present illness: 73-year-old -[place] male without known cardiovascular disease but history of prior polysubstance abuse including marijuana, cocaine, alcohol use. He reports abstinence from these substances for at least several months. Patient states he was admitted here in April with pneumonia and has never felt he fully recovered. He is maintained on oxygen 4 L/min during the daytime and 2 L/min at night since then. He reports he is always been thin but has lost an additional 25 pounds over the past year and BMI is currently 16. Patient states for the past several weeks his shortness of breath has become even more pronounced and he was unable to lay flat although he denies any lower extremity edema. In the emergency room last night he had elevated proBNP at 15,000, small bilateral effusions, WBC 4K, creatinine 1.7 (baseline 1.0). He reports feeling better this morning on Lasix, prednisone, DuoNeb, antibiotics. He is afebrile. ECHO result: Conclusion Mildly reduced LV systolic function (LVEF 45%). Septal flattening is present, consistent with elevated right-sided pressures. Septum is asynchronous. Severe RV dilation with severe reduction in RV function. Biatrial dilation. Severe TR. Moderate MR. Mild PI. Markedly elevated RVSP > 60 mmHg (may be inaccurate in the setting of severe TR). Pleural effusion is present. [facility] Disclaimer: The information contained in this section may have been updated after the patient was seen, as this information can be updated by other users. Medical History (Updated 01/12/24 @ 13:26 by GABI Henriquez) Pleural effusion, bilateral Hypertension Emphysema lung COPD (chronic obstructive pulmonary disease) Surgical History History of removal of cyst Social History Smoking Status: Current every day smoker tobacco type: cigarettes packs per day: 1 alcohol intake: never current occupational status: other Travel in the last 8 weeks: None Review of Systems Constitutional Constitutional: Denies fatigue and Reports weakness Eyes Eyes: Denies loss of vision ENT Ears, Nose, Mouth, and Throat: Denies hearing loss and Denies vertigo *Cardiovascular Cardiovascular: Denies chest pain, Reports dyspnea and Denies syncope *Respiratory Respiratory: Reports cough, Reports dyspnea, Reports excessive phlegm production and Reports wheezing *Gastrointestinal Gastrointestinal: Denies change in stool character, Denies nausea and Denies vomiting *Genitourinary Genitourinary: Denies difficulty urinating *Musculoskeletal Musculoskeletal: Denies muscle weakness Integumentary/Breasts Skin/Breast: Denies changing lesions *Neurologic Neurologic: Denies loss of vision, Denies syncope, Denies vertigo and Reports weakness Endocrine Endocrine: Denies fatigue Allergic/Immunologic Allergic/Immunologic: Reports wheezing Exam Data for Last 24 hours Vital signs and Labs for Last 24 Hours: Temp Pulse Resp BP Pulse Ox O2 Del Method O2 Flow Rate 97.5 F L 94 H 20 146/84 H 95 Nasal Cannula 4 01/12/24 08:00 01/12/24 08:00 01/12/24 08:00 01/12/24 08:00 01/12/24 08:00 01/12/24 08:53 01/12/24 08:53 FiO2 35 01/12/24 00:34 Laboratory Results - last 24 hr 01/11/24 20:00: VBG pH 7.33, VBG pCO2 43.3, VBG pO2 31.3, VBG HCO3 22.1 L, VBG Total CO2 23.4, VBG O2 Saturation 54.5, VBG Base Excess -4.0 L, VBG Lactic Acid 2.0 01/11/24 20:45: WBC 4.1 L, RBC 4.12 L, Hgb 14.2, Hct 45.4, MCV 110.1 H, MCH 34.4 H, MCHC 31.3 L, RDW 16.3, Plt Count 114 L, MPV 10.0, Neut % (Auto) 76.6, Lymph % (Auto) 15.1, [place] % (Auto) 5.4, Eos % (Auto) 2.7, Baso % (Auto) 0.2, Neut # (Auto) 3.2, Lymph # (Auto) 0.6 L, [place] # (Auto) 0.2, Eos # (Auto) 0.1, Baso # (Auto) 0.0, APTT 30.8 H, Sodium 136, Potassium 4.2, Chloride 99, Carbon Dioxide 26, Anion Gap 15.2 H, BUN 25 H, Creatinine 1.70 H, Estimated Creat Clear 33, Estimated GFR 40 L, Est GFR ( Amer) 48 L, Glucose 123 H, Lactate 1.3, Calcium 9.3, Magnesium 1.9, Total Bilirubin 1.6 H, AST 31, ALT 35, Alkaline Phosphatase 133 H, Troponin I 0.04 H, NT-Pro-B Natriuret Pep 44315 H, Total Protein 8.1, Albumin 4.8, Globulin 3.3 H, Albumin/Globulin Ratio 1.5 01/11/24 22:55: Troponin I 0.03 01/11/24 23:57: Specimen Source Right radial, O2 % 4lnc, ABG pH 7.42, ABG pCO2 34.7 L, ABG pO2 45.1 L, ABG HCO3 22.2, ABG Total CO2 23.3, ABG O2 Saturation 81 L*, ABG Base Excess -2.2, Rudy Test Acceptable 01/12/24 01:30: Troponin I 0.03 01/12/24 05:26: WBC 2.7 L D, RBC 3.95 L, Hgb 13.4 L, Hct 42.9, MCV 108.5 H, MCH 34.0 H, MCHC 31.3 L, RDW 16.2, Plt Count 108 L, MPV 9.5, Neut % (Auto) 82.5 H, Lymph % (Auto) 12.8, [place] % (Auto) 4.0, Eos % (Auto) 0.7, Baso % (Auto) 0.1, Neut # (Auto) 2.2, Lymph # (Auto) 0.3 L, [place] # (Auto) 0.1, Eos # (Auto) 0.0, Baso # (Auto) 0.0, Sodium 136, Potassium 3.9, Chloride 99, Carbon Dioxide 26, Anion Gap 14.9, BUN 28 H, Creatinine 1.70 H, Estimated Creat Clear 31, Estimated GFR 40 L, Est GFR ( Amer) 48 L, Glucose 118 H, Hemoglobin A1c 5.2, Calcium 9.0, Magnesium 2.2 D, Total Bilirubin 1.1, Direct Bilirubin 0.5 H, AST 27, ALT 31, Alkaline Phosphatase 125, Total Protein 7.2, Albumin 4.0 D, Globulin 3.2, Albumin/Globulin Ratio 1.3, Triglycerides 53, Cholesterol 123 L, LDL Cholesterol Direct 55.57 L, VLDL Cholesterol 11, HDL Cholesterol 40, Cholesterol/HDL Ratio 3.1, Folate 18.60, TSH 0.69 01/12/24 06:10: Chlamy pneumoniae PCR Not detected, Adenovirus (PCR) Not detected, B. pertussis DNA (PCR) Not detected, Coronavirus OC43 (PCR) Not detected, Coronavirus HKU1 (PCR) Not detected, Coronavirus 229E (PCR) Not detected, SARS-CoV-2 (PCR) Not detected, Coronavirus NL63 (PCR) Not detected, Human Metapneumovir PCR Not detected, Influenza A (H1) PCR Not detected, Influ A (H1N1/09) PCR Not detected, Influenza A (H3) PCR Not detected, Influenza Type A (PCR) Not detected, Influenza Type B (PCR) Not detected, M. pneumoniae (PCR) Not detected, Parainfluenza 1 (PCR) Not detected, Parainfluenza 2 (PCR) Not detected, Parainfluenza 3 (PCR) Not detected, Parainfluenza 4 (PCR) Not detected, RSV (PCR) Not detected, Entero/Rhino (PCR) Not detected I & O for Last 24 hours: Intake & Output 01/09/24 01/10/24 01/11/24 01/12/24 23:59 23:59 23:59 23:59 Intake Total 490 / 490 Output Total 0 / 200 450 / 450 Balance 0 / -50 40 / 40 Weight 126 lb 1.6 oz 123 lb 3.2 oz Constitutional Constitutional: no acute distress, thin, cachectic, chronically ill appearing and cooperative *Routine HEENT Exam Eye: Present PERRL *Routine Respiratory Exam Respiratory: Present wheezes; Absent accessory muscle use or crackles *Routine Cardiovascular Exam Cardiovascular: Present RRR, Normal S1 and Normal S2; Absent murmur, gallop or rubs *Routine Abdominal Exam Abdominal: Present soft; Absent tenderness *Routine Extremities Exam Extremities: Present pulses intact; Absent cyanosis or edema *Routine Skin Exam Skin: Present intact; Absent erythema or wounds *Routine Neurological Exam Neurological: Present alert and oriented X3 Routine Psychiatric Exam Psychiatric: Present cooperative Meds Home Medications and Allergies Home Medications ?Medication ?Instructions ?Recorded ?Confirmed ?Type mecobalamin (vitamin B12) 1,000 1,000 mcg PO DAILY 01/11/24 01/11/24 History mcg chewable tablet (B12 Active) New Prescriptions to Start Prescriptions: Allergies Allergy/AdvReac Type Severity Reaction Status Date / Time No Known Allergies Allergy Verified 01/15/21 17:44 Assessment and Plan *Assessment and plan (1) New onset of congestive heart failure: Status: Acute Category: Medical Code(s): I50.9 - Heart failure, unspecified (2) COPD exacerbation: Status: Acute Category: Medical Code(s): J44.1 - Chronic obstructive pulmonary disease with (acute) exacerbation (3) DELLA (acute kidney injury): Status: Acute Category: Medical Code(s): N17.9 - Acute kidney failure, unspecified (4) Tobacco use disorder: Status: Acute Category: Medical Code(s): F17.200 - Nicotine dependence, unspecified, uncomplicated (5) Cachexia: Status: Acute Category: Medical Code(s): R64 - Cachexia (6) Chronic hypoxemic respiratory failure: Status: Chronic Category: Medical Code(s): J96.11 - Chronic respiratory failure with hypoxia (7) HFrEF (heart failure with reduced ejection fraction): Status: Acute Category: Medical Code(s): I50.20 - Unspecified systolic (congestive) heart failure (8) Pulmonary arterial hypertension: Status: Acute Category: Medical Code(s): I27.21 - Secondary pulmonary arterial hypertension (9) Tricuspid regurgitation: Status: Acute Category: Medical Code(s): I07.1 - Rheumatic tricuspid insufficiency Plan Acute on Chronic HFrEF -proBNP 15,000 with bilateral effusions and acute hypoxia -Echo shows EF 45% -add Entresto, Aldactone, Farxiga. Hold on BB due to resp failure. -add ASA and Statin. OP ischemic workup. Severe RHF, PAH, TR - diruese - pulm consult - DC tobacco Acute on Chronic Hypoxic Resp Failure - Baseline 4L/min daytime since April 2023 - ongoing tob use since age 14 - wheezing throughout - on meds for COPD exacerbation, pulm is consulted Hx of Substance Use - prior heavy ETOH - last drink at least >1 mo ago per pt - remote hx of illicity substance use - marijuana and cocaine Cachexia, BMI 16 - pulm vs CV etiology? - pulm and CV w/u in process as well as cancer screenings - recommend nutrition consult
[2024-01-12 10:37] LABS: HIV (1&2) Antibody Rapid NONREACTIVE (NONREACTIVE)
[2024-01-12] MEDS: SODIUM CHLORIDE 3% 15ML NEB 3 ML IH (13:26)
[2024-01-12] MEDS: DAPAGLIFLOZIN PROPANEDIOL 10 MG TABLET PO (14:30)
[2024-01-12] MEDS: SACUBITRIL/VALSARTAN 24-26MG TABLET 1 EACH PO ×2 (14:30→20:53)
[2024-01-12] MEDS: SPIRONOLACTONE 25MG TABLET 25 MG PO (14:30)
[2024-01-12] MEDS: ASPIRIN EC 81MG TABLET 81 MG PO (14:30)
--- NOTE | 2024-01-12 17:46 | PC.NURSE ---
pt has remained alert and oriented x4 this shift. pt started shift on 4L, however is now on room air with 1L nc at bedside for comfort as needed. pt has had adequate urine output this shift. no new orders at this time. call light within reach.
[2024-01-12] MEDS: ATORVASTATIN 40MG TABLET 80 MG PO (20:53)
[2024-01-12] MEDS: CEFTRIAXONE 1 GM 1 GM in 0.9 % SODIUM CHLORIDE 50 ML IV (20:55)
--- NOTE | 2024-01-12 21:29 | CA_ITS ---
APPROVED REPORT EXAM: Comprehensive 2D, Doppler, and color-flow Echocardiogram Car Checker: Letty Niño CRT Ht: 6 ft 0 in Wt: 130lbs BSA: 1.77 BP: 187/116 mmHg Indications: Congestive Heart Failure, COPD, Shortness of Breath, Peripheral Edema, Hypertension/HDD, smoker, home o2, pleural effusions M-Mode Dimensions RVDd 2.43 cm (0.9-2.6) LA Diam 2.50 cm (1.9-4.0) LVDd 3.54 cm (3.5-5.7) LVDs 2.94 cm (3.5-5.7) IVSd 1.82 cm (0.6-1.1) PWd 1.19 cm (0.6-1.1) EF (Teich) 36.30% FS 16.90% EDV (Teich) 52.30 mL TAPSE 1.07 (<1.7) ESV (Teich) 33.30 mL LV Diastology E Decel Time 133 (160-240 msec) E/A Ratio 0.73 MED A' 11.00 cm/s LAT A' 15.30 cm/s Aortic Valve AO Peak GR. 5.10 mmHg Mitral Valve MV E Max Francis. 59.0 (40-130 cm/s) MV A Velocity 81.0 (40-130 cm/s) E/A Ratio 0.73 MV PHT 39.0 ms Pulmonary Valve PV Peak Velocity 228.0 (50-150 cm/s) Tricuspid Valve TR P. Velocity 468.00 cm/s RAP Estimate 10.00 mmHg RVSP 97.70 mmHg Left Ventricle The left ventricle is normal size. Left ventricular systolic function is mildly decreased. There is increased LV wall thickness. Septal flattening is present, consistent with elevated right-sided pressures. The septum is asynchronous. Grade 2 diastolic dysfunction is present. LVEF is 45%. Right Ventricle Right ventricle is severely dilated. Right ventricle is severely hypokinetic. Atria Left atrium is moderately dilated. Right atrium is severely dilated. There is no Doppler evidence of interatrial shunt. Aortic Valve The aortic valve is mildly thickened. The aortic valve is trileaflet. There is no aortic valvular stenosis. Trace aortic regurgitation. Mitral Valve The mitral valve leaflets are mildly thickened. No evidence of mitral valve stenosis. Moderate mitral regurgitation. Tricuspid Valve The tricuspid valve leaflets are thin and pliable. Severe tricuspid regurgitation. RVSP > 60 mmHg. RVSP may be inaccurate in the setting of severe TR. Pulmonic Valve The pulmonary valve is normal in structure. Mild pulmonic regurgitation. Great Vessels The aortic root is normal in size. The ascending aorta is not well-visualized. The IVC is dilated. Pericardium There is no pericardial effusion. Pleural effusion is present. Other Information Study Quality: Fair Conclusion Mildly reduced LV systolic function (LVEF 45%). Septal flattening is present, consistent with elevated right-sided pressures. Septum is asynchronous. Severe RV dilation with severe reduction in RV function. Biatrial dilation. Severe TR. Moderate MR. Mild PI. Markedly elevated RVSP > 60 mmHg (may be inaccurate in the setting of severe TR). Pleural effusion is present. Electronically signed by : Ronda Gillespie MD 01/12/2024 11:52:04
[2024-01-13] VITALS (10 sets, daily range): BP systolic 115–153; BP diastolic 71–87; PULSE 60–118; RESP 16–20; TEMP 36.3–36.7; O2SAT 96–99; BMI 16.6
[2024-01-13] MEDS: IPRATROPIUM/ALBUTEROL 3 ML NEB IH ×5 (00:09→23:42)
--- NOTE | 2024-01-13 04:17 | PC.NURSE ---
Pt is alert and oriented x4 and currently tolerating RA well at this time. Pt has had no acute changes and admits to feeling better. Pt denies pain and needs at this time.
[2024-01-13] MEDS: HEPARIN SODIUM 5,000 UNIT/ML VIAL 5000 UNIT SQ ×3 (04:24→20:12)
[2024-01-13 05:10] LABS: HCV Ab Non Reactive (Non Reactive)
[2024-01-13] MEDS: AZITHROMYCIN 250MG TABLET 250 MG PO (08:04)
[2024-01-13] MEDS: ASPIRIN EC 81MG TABLET 81 MG PO (08:04)
[2024-01-13] MEDS: DAPAGLIFLOZIN PROPANEDIOL 10 MG TABLET PO (08:04)
[2024-01-13] MEDS: SPIRONOLACTONE 25MG TABLET 25 MG PO (08:04)
[2024-01-13] MEDS: SACUBITRIL/VALSARTAN 24-26MG TABLET 1 EACH PO ×2 (08:05→20:12)
[2024-01-13] MEDS: FUROSEMIDE 40MG/4ML VIAL 40 MG IV (08:05)
[2024-01-13 08:34] LABS: Albumin Level 4.2 g/dl (3.5-5.0); Chloride 94 mmol/L (98-107); Potassium 4.5 mmoL/L (3.5-5.1); Sodium 134 mmol/L (136-145)
[2024-01-13 08:37] LABS: Alanine Aminotransferase 32 U/L (12-78); Albumin/Globulin Ratio 1.4 (1.1-1.8); Alkaline Phosphatase 109 U/L (38-126); Anion Gap 17.5 mEq/L (5-15); Aspartate Amino Transferase 47 U/L (17-59); Bilirubin,Total 1.4 mg/dl (0.2-1.3); Blood Urea Nitrogen 43 mg/dl (9-20); Carbon Dioxide 27 mmol/L (22.0-30.0); Creatinine Clearance Estimated 26 mL/min (50-200); Estimated Glomerular Filt Rate 33 ml/min (>60); GFR (African American) 40 ML/MIN (>60); Globulin 3.1 g/dL (1.3-3.2); Total Protein,Serum 7.3 g/dl (6.3-8.2)
[2024-01-13 08:38] LABS: Calcium 9.5 mg/dl (8.4-10.2); Glucose 93 mg/dl (74-100)
[2024-01-13 08:59] LABS: 25-OH Vitamin D, Total 19.2 ng/mL (30-100)
[2024-01-13 09:33] LABS: Vitamin B12 463 pg/mL (239-931)
--- NOTE | 2024-01-13 09:45 | P.PN_ITS ---
Subjective *Date: 01/13/24 *Time: 12:33 Interval history: No acute respiratory vents overnight. Denies any new respiratory complaints Pulmonology Exam Inpatient Vital signs and Labs for Last 24 Hours: Temp Pulse Resp BP Pulse Ox O2 Del Method O2 Flow Rate 97.8 F 118 H 20 153/75 H 99 Room Air 1 01/13/24 08:00 01/13/24 08:00 01/13/24 08:00 01/13/24 08:00 01/13/24 08:00 01/13/24 08:00 01/12/24 12:39 FiO2 35 01/12/24 00:34 Laboratory Results - last 24 hr 01/12/24 05:26: HIV 1&2 Antibody Rapid Nonreactive 01/12/24 10:35: Hepatitis C Antibody Non reactive, Hep C Ab Comment Comment 01/13/24 05:56: Sodium 134 L, Potassium 4.5, Chloride 94 L, Carbon Dioxide 27, Anion Gap 17.5 H, BUN 43 H D, Creatinine 2.00 H, Estimated Creat Clear 26, Est imated GFR 33 L, Est GFR ( Amer) 40 L, Glucose 93, Calcium 9.5, Magnesium 2.0, Total Bilirubin 1.4 H, AST 47 D, ALT 32, Alkaline Phosphatase 109, Total Protein 7.3, Albumin 4.2, Globulin 3.1, Albumin/Globulin Ratio 1.4, Vitamin B12 463, 25-OH Vitamin D Total 19.2 L Temp Pulse Resp BP Pulse Ox O2 Del Method O2 Flow Rate 97.5 F L 94 H 20 146/84 H 95 Nasal Cannula 4 01/12/24 08:00 01/12/24 08:00 01/12/24 08:00 01/12/24 08:00 01/12/24 08:00 01/12/24 08:53 01/12/24 08:53 FiO2 35 01/12/24 00:34 Laboratory Results - last 24 hr 01/11/24 20:00: VBG pH 7.33, VBG pCO2 43.3, VBG pO2 31.3, VBG HCO3 22.1 L, VBG Total CO2 23.4, VBG O2 Saturation 54.5, VBG Base Excess -4.0 L, VBG Lactic Acid 2.0 01/11/24 20:45: WBC 4.1 L, RBC 4.12 L, Hgb 14.2, Hct 45.4, MCV 110.1 H, MCH 34.4 H, MCHC 31.3 L, RDW 16.3, Plt Count 114 L, MPV 10.0, Neut % (Auto) 76.6, Lymph % (Auto) 15.1, [place] % (Auto) 5.4, Eos % (Auto) 2.7, Baso % (Auto) 0.2, Neut # (Auto) 3.2, Lymph # (Auto) 0.6 L, [place] # (Auto) 0.2, Eos # (Auto) 0.1, Baso # (Auto) 0.0, APTT 30.8 H, Sodium 136, Potassium 4.2, Chloride 99, Carbon Dioxide 26, Anion Gap 15.2 H, BUN 25 H, Creatinine 1.70 H, Estimated Creat Clear 33, Estimated GFR 40 L, Est GFR ( Amer) 48 L, Glucose 123 H, Lactate 1.3, Calcium 9.3, Magnesium 1.9, Total Bilirubin 1.6 H, AST 31, ALT 35, Alkaline Phosphatase 133 H, Troponin I 0.04 H, NT-Pro-B Natriuret Pep 99129 H, Total Protein 8.1, Albumin 4.8, Globulin 3.3 H, Albumin/Globulin Ratio 1.5 01/11/24 22:55: Troponin I 0.03 01/11/24 23:57: Specimen Source Right radial, O2 % 4lnc, ABG pH 7.42, ABG pCO2 34.7 L, ABG pO2 45.1 L, ABG HCO3 22.2, ABG Total CO2 23.3, ABG O2 Saturation 81 L*, ABG Base Excess -2.2, Rudy Test Acceptable 01/12/24 01:30: Troponin I 0.03 01/12/24 05:26: WBC 2.7 L D, RBC 3.95 L, Hgb 13.4 L, Hct 42.9, MCV 108.5 H, MCH 34.0 H, MCHC 31.3 L, RDW 16.2, Plt Count 108 L, MPV 9.5, Neut % (Auto) 82.5 H, Lymph % (Auto) 12.8, [place] % (Auto) 4.0, Eos % (Auto) 0.7, Baso % (Auto) 0.1, Neut # (Auto) 2.2, Lymph # (Auto) 0.3 L, [place] # (Auto) 0.1, Eos # (Auto) 0.0, Baso # (Auto) 0.0, Sodium 136, Potassium 3.9, Chloride 99, Carbon Dioxide 26, Anion Gap 14.9, BUN 28 H, Creatinine 1.70 H, Estimated Creat Clear 31, Estimated GFR 40 L, Est GFR ( Amer) 48 L, Glucose 118 H, Hemoglobin A1c 5.2, Calcium 9.0, Magnesium 2.2 D, Total Bilirubin 1.1, Direct Bilirubin 0.5 H, AST 27, ALT 31, Alkaline Phosphatase 125, Total Protein 7.2, Albumin 4.0 D, Globulin 3.2, Albumin/Globulin Ratio 1.3, Triglycerides 53, Cholesterol 123 L, LDL Cholesterol Direct 55.57 L, VLDL Cholesterol 11, HDL Cholesterol 40, Cholesterol/HDL Ratio 3.1, Folate 18.60, TSH 0.69 I & O for Labs for Last 24 Hours: Intake & Output 01/10/24 01/11/24 01/12/24 01/13/24 23:59 23:59 23:59 23:59 Intake Total 1370 / 1660 770 / 770 Output Total 0 / 200 450 / 1050 725 / 725 Balance 0 / -50 920 / 610 45 / 45 Weight 126 lb 1.6 oz 123 lb 3.109 oz 123 lb Intake & Output 01/09/24 01/10/24 01/11/24 01/12/24 23:59 23:59 23:59 23:59 Intake Total 490 / 490 Output Total 0 / 200 450 / 450 Balance 0 / -50 40 / 40 Weight 126 lb 1.6 oz 123 lb 3.2 oz Microbiology Reports for the Last 24 Hours: Microbiology 01/11/24 20:45 Blood Blood Culture - Preliminary NO GROWTH AFTER 24 HOURS 01/11/24 20:45 Blood Blood Culture - Preliminary NO GROWTH AFTER 24 HOURS Constitutional: Present moderate distress Head: Present normocephalic and atraumatic ENT: Present normal exam, normal oropharynx and mucous membranes moist Neck: Present normal inspection and full ROM Respiratory: Present respiratory distress, crackles, diminished air movement and able to speak in complete sentences; Absent prolonged expiratory phase or wheezes Cardiac: Present S1/S2, Tachycardia and radial pulses present GI: Present soft and distention; Absent tenderness or guarding Skin: Present intact; Absent cyanosis or jaundice Neuro: Present alert, awake and oriented x 3 Extremities: Present normal inspection; Absent clubbing or cyanosis Psychiatric: Present normal affect and cooperative Assessment and Plan *Assessment and plan (1) Chronic hypoxemic respiratory failure: Status: Chronic Category: Medical Code(s): J96.11 - Chronic respiratory failure with hypoxia (2) Pneumonia: Status: Acute Category: Medical Code(s): J18.9 - Pneumonia, unspecified organism (3) Pleural effusion, bilateral: Status: Acute Category: Medical Code(s): J90 - Pleural effusion, not elsewhere classified (4) Emphysema lung: Status: Acute Category: Medical Code(s): J43.9 - Emphysema, unspecified Plan Mr. Machado is a 73-year-old male with reported history of tobacco abuse, current smoker, 1 to 2 packs a day COPD chronic hypoxic respiratory failure using 2 to 4 L oxygen supplementation presented to ER with worsening respiratory distress for 2 weeks and was admitted for further evaluation and management. Patient admits gradually worsening respiratory distress. Denies any lower extremity swelling. Afebrile. Hemodynamically stable. Leukopenia. CT chest diffuse emphysematous changes. Bilateral pleural effusions large right and small left pleural effusion. Adjacent atelectasis. No dense consolidative/airspace changes noted. Interstitial edema noted. Patient admission was initiated on treatment for community-acquired and ceftriaxone azithromycin and prednisone 40 mg daily.. Also receiving diuretics. Echocardiogram pending. On examination patient noted to be in moderate respiratory distress. Saturating 99% on 3 L, weaned to room air. No significant wheezing noted on auscultation. Decreased breath in bilateral lower lung ibarra. Interval update: No acute respiratory vents overnight. Admits improving respiratory symptoms. Weaned to room air this morning. Chest x-ray improving effusions. Plan: -Continue DuoNebs every 6 hours scheduled. Using Stiolto at baseline. -Continue oxygen supplementation as needed to maintain O2 saturation above 90% -Continue ceftriaxone and azithromycin for the concerning left lower lobe pneumonia. Antibiotics can be weaned to cefdinir to complete a total of 5-day course upon discharge. -Improving respiratory status, oxygen requirements and pleural effusions. No need for thoracentesis at this point of time. Thank you for involving pulmonary in this patient care. Will continue to follow.
--- NOTE | 2024-01-13 09:45 | XR_ITS ---
FINAL REPORT CLINICAL HISTORY: Hypoxia COMPARISON: 01/11/2024 FINDINGS: SINGLE-VIEW CHEST The heart size is normal. The mediastinum is normal. There is abnormal opacity at the right base consistent with atelectasis and small effusion. The left lung is clear. There is no pneumothorax. IMPRESSION: Stable opacity at right base. Reviewed, Interpreted and Dictated by Magnus Anna MD Transcribed by Beatris Marc Authenticated and [facility]
--- NOTE | 2024-01-13 10:09 | EXP.CARD.PN ---
Subjective Subjective Date: 01/13/24 Time: 10:09 Principal diagnosis: HFrEF, PAH, AC-resp failure Interval history: No events overnight. Slight increase of creatinine to 2.0. Otherwise he is tolerating heart failure meds well. Blood pressure improving. Exam Data for Last 24 hours Vital signs and Labs for Last 24 Hours: Temp Pulse Resp BP Pulse Ox O2 Del Method O2 Flow Rate 97.8 F 118 H 20 153/75 H 99 Room Air 1 01/13/24 08:00 01/13/24 08:00 01/13/24 08:00 01/13/24 08:00 01/13/24 08:00 01/13/24 08:00 01/12/24 12:39 FiO2 35 01/12/24 00:34 Laboratory Results - last 24 hr 01/12/24 05:26: HIV 1&2 Antibody Rapid Nonreactive 01/12/24 10:35: Hepatitis C Antibody Non reactive, Hep C Ab Comment Comment 01/13/24 05:56: Sodium 134 L, Potassium 4.5, Chloride 94 L, Carbon Dioxide 27, Anion Gap 17.5 H, BUN 43 H D, Creatinine 2.00 H, Estimated Creat Clear 26, Estimated GFR 33 L, Est GFR ( Amer) 40 L, Glucose 93, Calcium 9.5, Magnesium 2.0, Total Bilirubin 1.4 H, AST 47 D, ALT 32, Alkaline Phosphatase 109, Total Protein 7.3, Albumin 4.2, Globulin 3.1, Albumin/Globulin Ratio 1.4, Vitamin B12 463, 25-OH Vitamin D Total 19.2 L I & O for Last 24 hours: Intake & Output 01/10/24 01/11/24 01/12/24 01/13/24 23:59 23:59 23:59 23:59 Intake Total 1370 / 1660 770 / 770 Output Total 0 / 200 450 / 1050 725 / 725 Balance 0 / -50 920 / 610 45 / 45 Weight 126 lb 1.6 oz 123 lb 3.109 oz 123 lb Microbiology Reports for the Last 24 Hours: Microbiology 01/11/24 20:45 Blood Blood Culture - Preliminary NO GROWTH AFTER 24 HOURS 01/11/24 20:45 Blood Blood Culture - Preliminary NO GROWTH AFTER 24 HOURS Constitutional Constitutional: no acute distress, thin, cachectic, chronically ill appearing and cooperative *Routine HEENT Exam Eye: Present PERRL *Routine Respiratory Exam Respiratory: Present CTA bilaterally; Absent accessory muscle use, wheezes or crackles Comments: Lungs are clear today, much improved *Routine Cardiovascular Exam Cardiovascular: Present RRR, Normal S1 and Normal S2; Absent murmur, gallop or rubs *Routine Abdominal Exam Abdominal: Present soft; Absent tenderness *Routine Extremities Exam Extremities: Present pulses intact; Absent cyanosis or edema *Routine Skin Exam Skin: Present intact; Absent erythema or wounds *Routine Neurological Exam Neurological: Present alert and oriented X3 Routine Psychiatric Exam Psychiatric: Present cooperative Progress Note: A&P Assessment and plan (1) HFrEF (heart failure with reduced ejection fraction): Status: Acute (2) Right heart failure: Status: Acute (3) Emphysema lung: Status: Acute (4) Chronic hypoxemic respiratory failure: Status: Chronic (5) Pneumonia: Status: Acute (6) Pleural effusion, bilateral: Status: Acute (7) Pulmonary arterial hypertension: Status: Acute Assessment and Plan Assessment and Plan for All Diagnoses:: Acute on Chronic HFrEF -proBNP 15,000 with bilateral effusions and acute hypoxia -Echo shows EF 45% Severe RV dilation, Severe TR, Severe PAH -Cont Entresto, Aldactone, Farxiga. Hold on BB due to resp failure. Uptitrate meds as outpatient. -Cont ASA and Statin. OP ischemic workup. Severe RHF, PAH, TR - likely secondary to severe chronic hypoxic resp failure and cachexia - pulm consult - DC tobacco Acute on Chronic Hypoxic Resp Failure - Baseline 4L/min daytime since April 2023 - ongoing tob use since age 14 - wheezing throughout - improving - on meds for COPD exacerbation, pulm is consulted Hx of Substance Use - prior heavy ETOH - last drink at least >1 mo ago per pt - remote hx of illicity substance use - marijuana and cocaine Cachexia, BMI 16 - pulm vs CV etiology? - pulm and CV w/u in process as well as cancer screenings - recommend nutrition consult CKD-III - Cr up from 1.7 to 2.0 with diuresis and GDMT HF meds - Reduce Lasix from IV 40 q12 to po 40mg PRN - daily labs - monitor for edema CV stable/improving. Likely should stay one more day to monitor renal function/med tolerance then will need close OP follow up by Pulm and Cards.
--- NOTE | 2024-01-13 14:49 | P.PN_ITS ---
Subjective *Date: 01/13/24 *Time: 14:49 Exam Data for Last 24 hours Vital signs and Labs for Last 24 Hours: Temp Pulse Resp BP Pulse Ox O2 Del Method O2 Flow Rate 98.1 F 91 H 18 115/71 97 Room Air 1 01/13/24 12:00 01/13/24 12:00 01/13/24 12:00 01/13/24 12:00 01/13/24 12:00 01/13/24 13:00 01/12/24 12:39 FiO2 35 01/12/24 00:34 Laboratory Results - last 24 hr 01/12/24 10:35: Hepatitis C Antibody Non reactive, Hep C Ab Comment Comment 01/13/24 05:56: Sodium 134 L, Potassium 4.5, Chloride 94 L, Carbon Dioxide 27, Anion Gap 17.5 H, BUN 43 H D, Creatinine 2.00 H, Estimated Creat Clear 26, Estimated GFR 33 L, Est GFR ( Amer) 40 L, Glucose 93, Calcium 9.5, Magnesium 2.0, Total Bilirubin 1.4 H, AST 47 D, ALT 32, Alkaline Phosphatase 109, Total Protein 7.3, Albumin 4.2, Globulin 3.1, Albumin/Globulin Ratio 1.4, Vitamin B12 463, 25-OH Vitamin D Total 19.2 L I & O for Last 24 hours: Intake & Output 01/10/24 01/11/24 01/12/24 01/13/24 23:59 23:59 23:59 23:59 Intake Total 1370 / 1660 1250 / 1250 Output Total 0 / 200 450 / 1050 725 / 725 Balance 0 / -50 920 / 610 525 / 525 Weight 57.198 kg 55.88 kg 55.792 kg Microbiology Reports for the Last 24 Hours: Microbiology 01/11/24 20:45 Blood Blood Culture - Preliminary NO GROWTH AFTER 24 HOURS 01/11/24 20:45 Blood Blood Culture - Preliminary NO GROWTH AFTER 24 HOURS Constitutional Constitutional: no acute distress and cachectic *Routine HEENT Exam Head: Present normocephalic Eye: Present EOMI and PERRL ENT: Present mucous membranes moist *Routine Neck Exam Neck: Present supple; Absent lymphadenopathy *Routine Respiratory Exam Respiratory: Present CTA bilaterally *Routine Cardiovascular Exam Cardiovascular: Present RRR *Routine Abdominal Exam Abdominal: Present soft and normoactive bowel sounds; Absent tenderness *Routine Extremities Exam Extremities: Absent cyanosis, clubbing or edema *Routine Skin Exam Skin: Present warm; Absent rash *Routine Neurological Exam Neurological: Present alert and oriented X3 Assessment and Plan *Assessment and plan (1) New onset of congestive heart failure: Status: Acute Category: Medical Code(s): I50.9 - Heart failure, unspecified (2) HFrEF (heart failure with reduced ejection fraction): Status: Acute Category: Medical Code(s): I50.20 - Unspecified systolic (congestive) heart failure (3) Pulmonary arterial hypertension: Status: Acute Category: Medical Code(s): I27.21 - Secondary pulmonary arterial hypertension (4) COPD exacerbation: Status: Acute Category: Medical Code(s): J44.1 - Chronic obstructive pulmonary disease with (acute) exacerbation (5) DELLA (acute kidney injury): Status: Acute Category: Medical Code(s): N17.9 - Acute kidney failure, unspecified (6) Pneumonia: Status: Acute Category: Medical Code(s): J18.9 - Pneumonia, unspecified organism (7) Tobacco use disorder: Status: Acute Category: Medical Code(s): F17.200 - Nicotine dependence, unspecified, uncomplicated (8) Cachexia: Status: Acute Category: Medical Code(s): R64 - Cachexia (9) Chronic hypoxemic respiratory failure: Status: Chronic Category: Medical Code(s): J96.11 - Chronic respiratory failure with hypoxia (10) Severe protein-calorie malnutrition: Status: Acute Category: Medical Code(s): E43 - Unspecified severe protein-calorie malnutrition Plan Carter Ching is a 73-year-old male with a medical history significant for COPD (baseline 4 L during the day, 2 L at night) who presented to the ED due to worsening shortness over the past 2 weeks. He states ever since he had been hospitalized for pneumonia earlier this year he has been oxygen dependent. However, he states over the past 2 weeks he has been wheezing, and having green productive cough with worsening shortness of breath. He also notes he has been wheezing more, but has been adherent with his home inhalers. He also states that his appetite has not been great over the past 2 months and that he generally does not drink much water. He also endorses to currently smoking 1 pack a day, but has decreased since starting medication to help with cravings (cannot recall the name). Workup in the ED significant for BNP 15,000, leukopenia WBC 4.1, MCV 110, platelets 114, creatinine 1.7 (baseline around 1.0), total bilirubin 1.6, ALP 133. VBG unremarkable. CXR significant for bibasilar reticular opacities, right worse than left, and small bilateral pleural effusions. He was given Solu-Medrol 125 mg, ceftriaxone, DuoNeb, azithromycin, IV Lasix 60 mg. Patient continued to be dyspneic with pursed lip breathing. Case discussed with ED provider and decision was made to admit patient for new heart failure exacerbation, COPD exacerbation, DELLA, failure to thrive. Preliminary echo read this morning shows reduced ejection. Pulmonology and cardiology to evaluate today. Continues to require inpatient management. Problems addressed as darryl garcias: #Acute HFrEF # Severe right heart failure with pulmonary artery hypertension #Bilateral pulmonary edema #Bilateral pleural effusions ? No cardiac history including MIs, stents. ? BNP 15,000 on admission with bilateral pulmonary edema, pleural effusions, dyspneic on 4 L. Continue supplemental oxygen as required for goal sats greater 90%. - Echo with the following: EF 45%. Severe RV dilation with reduced RV function. Elevated RVSP greater than 60. ? Transition to Lasix 20 mg daily. Discontinue IV Lasix 40 mg twice daily after improvement in pulmonary edema and bump in creatinine. Follow urine output, renal function, electrolytes. ? Cardiology consulted, Discussed case, recommend to Initiate Entresto 24/26 mg twice daily, spironolactone 25 mg daily, initiate Jardiance 10 mg daily, aspirin 81 mg daily, and Lipitor 80 mg nightly. - A1c normal at 5.2, TSH normal at 0.7. lipid panel unremarkable - CT chest does show moderate to large right pleural effusion, discussed case with pulmonology, recommends continuing DuoNebs every 6 hours, initiate Stiolto. Oxygen as needed for goal sats greater 90%. Does not think patient needs a thoracentesis at this time. #Physical deconditioning ? Consulted PT/OT, pending recommendations at this time. #Hx of Substance Use - prior heavy ETOH - last drink at least >1 mo ago per pt - remote hx of illicit substance use - marijuana and crack cocaine #COPD #Suspected community-acquired pneumonia ? Endorses increased wheezing, productive cough over the past 2 weeks. States he has been adherent to home inhalers. ? CXR does show bibasilar opacities, right worse than left suggesting possible underlying pneumonia especially with a history of pneumonia. Leukopenic at this time. ? Baseline requires 4 L during the day, 2 L at night. ? VBG did not show acute CO2 retention. ? DuoNebs scheduled and as needed. ? Steroids were initially started, but discontinued after exacerbation of COPD was thought to be less likely. ? Ceftriaxone, azithromycin day 04/18 for suspected pneumonia. ? Follow-up respiratory panel. #Cachexia, decreased appetite # Severe protein calorie malnutrition #Failure to thrive #Current smoker #Hyperbilirubinemia #Elevated ALP ? Patient has a longstanding history of smoking, currently smokes 1 pack a day. ? Mild increase in total bilirubin 1.6, ALP 133. Could be from congestive hepatopathy and/or bone demineralization, but cannot rule out CBD obstruction from pancreatic mass in the setting of smoking. ? He also endorses recent decreased appetite over the past 2 months, weight loss. ? BMI 17 on admission. ? Per review of chest imaging/CT, has emphysema. Also found to have large right pleural effusion. Do not see any obvious masses or lesions. CT abdomen found to have free fluid in the pelvis. No abnormal masses in the abdomen either or lymphadenopathy per my review. ?TSH 0.7 , A1c 5.2 - Nicotine patch as needed. ? Nutrition consulted #DELLA ? Creatinine 1.7 to 2.0, baseline 1.0 in March 2023. Likely from aggressive diuresis. Transitioning to p.o. Lasix. See above. -Repeat CBC, CMP, magnesium ordered. Monitoring closely given diuresis. #Macrocytosis without anemia ? MCV 110.1 on admission. Patient states he used to drink alcohol, but has not drank much in the past month. ? Also endorses significant decreased appetite in the past 2 months alluding to possible vitamin deficiencies. ? Follow-up folate, vitamin B12, vitamin D in the morning. CODE STATUS: Full code DVT prophylaxis: Heparin SQ 3 times daily given DELLA Cardiac diet
[2024-01-13] MEDS: ATORVASTATIN 40MG TABLET 80 MG PO (20:12)
[2024-01-13] MEDS: ALUMINUM/MAGNESIUM/SIMETHICONE 30ML UDC 30 ML PO (20:12)
[2024-01-13] MEDS: CEFTRIAXONE 1 GM 1 GM in 0.9 % SODIUM CHLORIDE 50 ML IV (20:13)
[2024-01-14] VITALS: BP 111/66; PULSE 80; PULSE 99; RESP 18; TEMP 37.3; O2SAT 98
[2024-01-14 04:00] VITALS: BP 118/78; PULSE 80; PULSE 92; RESP 18; TEMP 36.6; O2SAT 92; BMI 16.8
[2024-01-14] MEDS: IPRATROPIUM/ALBUTEROL 3 ML NEB IH ×2 (07:03→11:14)
[2024-01-14 07:04] LABS: Chloride 94 mmol/L (98-107)
[2024-01-14 07:05] LABS: Albumin Level 3.9 g/dl (3.5-5.0); Potassium 3.7 mmoL/L (3.5-5.1); Sodium 133 mmol/L (136-145)
[2024-01-14 07:07] LABS: Anion Gap 11.7 mEq/L (5-15); Blood Urea Nitrogen 47 mg/dl (9-20); Carbon Dioxide 31 mmol/L (22.0-30.0); Creatinine Clearance Estimated 27 mL/min (50-200); Estimated Glomerular Filt Rate 33 ml/min (>60); GFR (African American) 40 ML/MIN (>60)
[2024-01-14 07:08] LABS: Alanine Aminotransferase 30 U/L (12-78); Albumin/Globulin Ratio 1.3 (1.1-1.8); Alkaline Phosphatase 113 U/L (38-126); Aspartate Amino Transferase 24 U/L (17-59); Bilirubin,Total 0.7 mg/dl (0.2-1.3); Globulin 2.9 g/dL (1.3-3.2); Glucose 102 mg/dl (74-100); Magnesium 1.9 mg/dl (1.6-2.3); Total Protein,Serum 6.8 g/dl (6.3-8.2)
--- NOTE | 2024-01-14 07:52 | HMH.PTEV ---
Physical Therapy Evaluation Rehab PT IP Evaluation Start: 01/13/24 14:51 Freq: ONCE Status: Active Protocol: Document 01/14/24 07:36 HERLINDA (Rec: 01/14/24 07:51 HERLINDA [id number]) Subjective/History History History Per H&P: Carter Ching is a 73-year-old male with a medical history significant for COPD (baseline 4 L during the day, 2 L at night) who presented to the ED due to worsening shortness over the past 2 weeks. He states ever since he had been hospitalized for pneumonia earlier this year he has been oxygen dependent. However, he states over the past 2 weeks he has been wheezing, and having green productive cough with worsening shortness of breath. He also notes he has been wheezing more, but has been adherent with his home inhalers. He denies fevers/ chills, upper respiratory symptoms, chest pain, leg swelling over this course. Denies previous cardiac history including MA, cardiac surgery, stents. He also states that his appetite has not been great over the past 2 months and that he generally does not drink much water. He also endorses to currently smoking 1 pack a day, but has decreased since starting medication to help with cravings (cannot recall the name). Subjective Subjective Pt reports he lives in a government assisted apartment with ~10 DANII with HRs. Pt lives alone. Pt voiced concern about living alone. Pt reports, his daughter and him have been talking about pt staying at a [facility] [place] [facility] instead. I'm afraid I just can't stay on my feet long enough . Pt reports prior to admission he was IND with intermittent use of a cane. One fall in past month d/t tripping. Pt not driving. Pt owns a RW. New diagnosis of cancer in past 12 No months? Rehab PT IP Eval Objective Appearance Patient Behavior Appropriate,Cooperative Patient Orientation Person,Situation Difficulty following instructions none Speech Pattern Clear Ambulation Patient Able to Ambulate Yes Ambulation Observation Ambulation Distance (feet) 40 Ambulation Assistive Device None Ambulation Ability Supervision/Stand by Balance Ability to Arise Able, w/o using arms Sitting Balance Steady, safe Standing Balance Steady, wide stance Dynamic Sitting Balance Ability Good Dynamic Standing Balance Ability Good Transfers Bed Transfer Ability Supervision/Stand by Sit to Stand Bed Transfer Ability Supervision/Stand by Rehab PT IP prob,goals,plan Problems Date of Evaluation: 01/14/24 Rehab Potential Rehab Potential Innapropriate for Skilled Therapy Discharge Plan PT Discharge Plan Pt safe to d/c home when deemed medically necessary d/t current level of mobility. Pt demo'd safe ambulation without AD and demo'd toilet transfer and toileting hygeine with independence. PT educated pt on PT services to address his endurance and general strength deficits. Pt not appropriate for skilled acute care PT at this time d/t pt?s IND/SUP level of mobility. PT recommending PT services upon d/c from [facility]. Eval Complexity Eval Charge Codes 75924 - Moderate Complexity PHYSICIAN CERTIFICATION: I certify the specified therapy services for Humza Machado are required, authorized, and reviewed every 30 days.
[2024-01-14 08:00] VITALS: BP 121/77; PULSE 100; PULSE 111; RESP 17; TEMP 36.5; O2SAT 91
[2024-01-14] MEDS: AZITHROMYCIN 250MG TABLET 250 MG PO (08:29)
[2024-01-14] MEDS: SACUBITRIL/VALSARTAN 24-26MG TABLET 1 EACH PO (08:29)
[2024-01-14] MEDS: DAPAGLIFLOZIN PROPANEDIOL 10 MG TABLET PO (08:30)
[2024-01-14] MEDS: ASPIRIN EC 81MG TABLET 81 MG PO (08:30)
[2024-01-14] MEDS: SPIRONOLACTONE 25MG TABLET 25 MG PO (08:30)
[2024-01-14] MEDS: FUROSEMIDE 20MG TABLET 20 MG PO (08:30)
--- NOTE | 2024-01-14 09:05 | SW/DCPLANNER ---
Addendum entered by [facility] 01/14/24 14:35: Renée has contacted me back stating that due to patient being [facility] she will have to have orders from [facility] primary MD. Renée will attempt to call and request as well. I also requested orders from PCP at [facility] this AM. Addendum entered by [facility] 01/14/24 14:13: Daughter Roberta [phone] Addendum entered by [facility] 01/14/24 14:04: Renée w/ [facility] stated that services will start Friday01/17/24. Addendum entered by [facility] 01/14/24 13:34: I called and updated patient's daughter regarding discharge plans at patient's request. Addendum entered by Sobia Salcido RN 01/14/24 13:16: Patient requiring nebulizer. Information sent to [facility] as patient gets prescriptions and meds from [facility] Original Note: I spoke w/ this patient regarding plans once medically stable for discharge. PT/OT evaluated patient and recommended returning home w/ home health services. Patient expressed an interest in placement at time of discharge. I did offer placement under private pay or [facility] facility and patient is not interested at this time. Patient is agreeable to home health services (no preference). I also called the [facility] ([phone]) and spoke w/ [facility] regarding additional resources at home including assistance w/ cooking and cleaning. The support person (Liliam) stated that she will put in a request from federal aid coordinator at [facility] (Dr Carl Betancourt) to approve services. Dr Betancourt office will follow up w/ me once MD reviews request. I will continue to follow up w/ patient.
--- NOTE | 2024-01-14 09:25 | PC.NURSE ---
Addendum entered by Amber Winters RN 01/14/24 09:26: pt's O2 was 71 % on room air when therapy came into room. Original Note: pt c/o chest pain at this time that is radiating down his left arm. notified rt for need for ekg and asked snack stewardess to print a tele strip. pt placed on 2L nasal cannula.
[2024-01-14] MEDS: ALUMINUM/MAGNESIUM/SIMETHICONE 30ML UDC 30 ML PO (09:30)
--- NOTE | 2024-01-14 09:31 | ECG_ITS ---
APPROVED REPORT Exam: Resting ECG HR:108 bpm ECG Measurements Heart Rate 108 AXES MA 172 P 63 QRSd 81 QRS -67 QT 340 T 70 QTc 403 Conclusion SINUS TACHYCARDIA WITH OCCASIONAL VENTRICULAR PREMATURE COMPLEXES LEFT ATRIAL ENLARGEMENT [-0.15mV P-WAVE IN V1/V2] INFERIOR MYOCARDIAL INFARCTION , PROBABLY OLD [40+ ms Q WAVE AND/OR ST/T ABNORMALITY IN II/aVF] ABNORMAL ECG UNCONFIRMED REPORT Electronically signed by : Albert Gold MD 01/16/2024 15:26:42
--- NOTE | 2024-01-14 09:40 | P.PN_ITS ---
Subjective *Date: 01/14/24 *Time: 10:54 Interval history: Patient denies any new respiratory complaints. Pulmonology Exam Inpatient Vital signs and Labs for Last 24 Hours: Temp Pulse Resp BP Pulse Ox O2 Del Method O2 Flow Rate 97.7 F 111 H 17 121/77 91 L Room Air 1 01/14/24 08:00 01/14/24 08:00 01/14/24 08:00 01/14/24 08:00 01/14/24 08:00 01/14/24 08:00 01/12/24 12:39 FiO2 35 01/12/24 00:34 Laboratory Results - last 24 hr 01/14/24 06:20: Sodium 133 L, Potassium 3.7, Chloride 94 L, Carbon Dioxide 31 H, Anion Gap 11.7, BUN 47 H, Creatinine 2.00 H, Estimated Creat Clear 27, Estimated GFR 33 L, Est GFR ( Amer) 40 L, Glucose 102 H, Calcium 9.0, Magnesium 1.9, Total Bilirubin 0.7, AST 24 D, ALT 30, Alkaline Phosphatase 113, Total Protein 6.8, Albumin 3.9, Globulin 2.9, Albumin/Globulin Ratio 1.3 Temp Pulse Resp BP Pulse Ox O2 Del Method O2 Flow Rate 97.5 F L 94 H 20 146/84 H 95 Nasal Cannula 4 01/12/24 08:00 01/12/24 08:00 01/12/24 08:00 01/12/24 08:00 01/12/24 08:00 01/12/24 08:53 01/12/24 08:53 FiO2 35 01/12/24 00:34 Laboratory Results - last 24 hr 01/11/24 20:00: VBG pH 7.33, VBG pCO2 43.3, VBG pO2 31.3, VBG HCO3 22.1 L, VBG Total CO2 23.4, VBG O2 Saturation 54.5, VBG Base Excess -4.0 L, VBG Lactic Acid 2.0 01/11/24 20:45: WBC 4.1 L, RBC 4.12 L, Hgb 14.2, Hct 45.4, MCV 110.1 H, MCH 34.4 H, MCHC 31.3 L, RDW 16.3, Plt Count 114 L, MPV 10.0, Neut % (Auto) 76.6, Lymph % (Auto) 15.1, [place] % (Auto) 5.4, Eos % (Auto) 2.7, Baso % (Auto) 0.2, Neut # (Auto) 3.2, Lymph # (Auto) 0.6 L, [place] # (Auto) 0.2, Eos # (Auto) 0.1, Baso # (Auto) 0.0, APTT 30.8 H, Sodium 136, Potassium 4.2, Chloride 99, Carbon Dioxide 26, Anion Gap 15.2 H, BUN 25 H, Creatinine 1.70 H, Estimated Creat Clear 33, Estimated GFR 40 L, Est GFR ( Amer) 48 L, Glucose 123 H, Lactate 1.3, Calcium 9.3, Magnesium 1.9, Total Bilirubin 1.6 H, AST 31, ALT 35, Alkaline Phosphatase 133 H, Troponin I 0.04 H, NT-Pro-B Natriuret Pep 25431 H, Total Protein 8.1, Albumin 4.8, Globulin 3.3 H, Albumin/Globulin Ratio 1.5 01/11/24 22:55: Troponin I 0.03 01/11/24 23:57: Specimen Source Right radial, O2 % 4lnc, ABG pH 7.42, ABG pCO2 34.7 L, ABG pO2 45.1 L, ABG HCO3 22.2, ABG Total CO2 23.3, ABG O2 Saturation 81 L*, ABG Base Excess -2.2, Rudy Test Acceptable 01/12/24 01:30: Troponin I 0.03 01/12/24 05:26: WBC 2.7 L D, RBC 3.95 L, Hgb 13.4 L, Hct 42.9, MCV 108.5 H, MCH 34.0 H, MCHC 31.3 L, RDW 16.2, Plt Count 108 L, MPV 9.5, Neut % (Auto) 82.5 H, Lymph % (Auto) 12.8, [place] % (Auto) 4.0, Eos % (Auto) 0.7, Baso % (Auto) 0.1, Neut # (Auto) 2.2, Lymph # (Auto) 0.3 L, [place] # (Auto) 0.1, Eos # (Auto) 0.0, Baso # (Auto) 0.0, Sodium 136, Potassium 3.9, Chloride 99, Carbon Dioxide 26, Anion Gap 14.9, BUN 28 H, Creatinine 1.70 H, Estimated Creat Clear 31, Estimated GFR 40 L, Est GFR ( Amer) 48 L, Glucose 118 H, Hemoglobin A1c 5.2, Calcium 9.0, Magnesium 2.2 D, Total Bilirubin 1.1, Direct Bilirubin 0.5 H, AST 27, ALT 31, Alkaline Phosphatase 125, Total Protein 7.2, Albumin 4.0 D, Globulin 3.2, Albumin/Globulin Ratio 1.3, Triglycerides 53, Cholesterol 123 L, LDL Cholesterol Direct 55.57 L, VLDL Cholesterol 11, HDL Cholesterol 40, Cholesterol/HDL Ratio 3.1, Folate 18.60, TSH 0.69 I & O for Labs for Last 24 Hours: Intake & Output 01/11/24 01/12/24 01/13/24 01/14/24 23:59 23:59 23:59 23:59 Intake Total 1370 / 1660 1730 / 2020 710 / 710 Output Total 0 / 200 450 / 1050 1400 / 1550 150 / 150 Balance 0 / -50 920 / 610 330 / 470 560 / 560 Weight 126 lb 1.6 oz 123 lb 3.109 oz 123 lb 124 lb 3 oz Intake & Output 01/09/24 01/10/24 01/11/24 01/12/24 23:59 23:59 23:59 23:59 Intake Total 490 / 490 Output Total 0 / 200 450 / 450 Balance 0 / -50 40 / 40 Weight 126 lb 1.6 oz 123 lb 3.2 oz Microbiology Reports for the Last 24 Hours: Microbiology 01/11/24 20:45 Blood Blood Culture - Preliminary NO GROWTH AFTER 48 HOURS 01/11/24 20:45 Blood Blood Culture - Preliminary NO GROWTH AFTER 48 HOURS Constitutional: Present moderate distress Head: Present normocephalic and atraumatic ENT: Present normal exam, normal oropharynx and mucous membranes moist Neck: Present normal inspection and full ROM Respiratory: Present respiratory distress, crackles, diminished air movement and able to speak in complete sentences; Absent prolonged expiratory phase or wheezes Cardiac: Present S1/S2, Tachycardia and radial pulses present GI: Present soft and distention; Absent tenderness or guarding Skin: Present intact; Absent cyanosis or jaundice Neuro: Present alert, awake and oriented x 3 Extremities: Present normal inspection; Absent clubbing or cyanosis Psychiatric: Present normal affect and cooperative Assessment and Plan *Assessment and plan (1) Chronic hypoxemic respiratory failure: Status: Chronic Category: Medical Code(s): J96.11 - Chronic respiratory failure with hypoxia (2) Pneumonia: Status: Acute Category: Medical Code(s): J18.9 - Pneumonia, unspecified organism (3) Pleural effusion, bilateral: Status: Acute Category: Medical Code(s): J90 - Pleural effusion, not elsewhere classified (4) Emphysema lung: Status: Acute Category: Medical Code(s): J43.9 - Emphysema, unspecified Plan Mr. Machado is a 73-year-old male with reported history of tobacco abuse, current smoker, 1 to 2 packs a day COPD chronic hypoxic respiratory failure using 2 to 4 L oxygen supplementation presented to ER with worsening respiratory distress for 2 weeks and was admitted for further evaluation and management. Patient admits gradually worsening respiratory distress. Denies any lower extremity swelling. Afebrile. Hemodynamically stable. Leukopenia. CT chest diffuse emphysematous changes. Bilateral pleural effusions large right and small left pleural effusion. Adjacent atelectasis. No dense consolidative/airspace changes noted. Interstitial edema noted. Patient admission was initiated on treatment for community-acquired and ceftriaxone azithromycin and prednisone 40 mg daily.. Also receiving diuretics. Echocardiogram pending. On examination patient noted to be in moderate respiratory distress. Saturating 99% on 3 L, weaned to room air. No significant wheezing noted on auscultation. Decreased breath in bilateral lower lung ibarra. Repeat chest x-ray, improving effusions. Interval update: Significant event this morning the patient complained of respiratory distress and was initiated on 2 L nasal oxygen supplementation. Distress improved with G I cocktail. Suboptimal pleth on finger pulse oximetry. Currently on 2 L nasal oxygen supplementation. Continuous pulse oximetry and follow with chest x-ray to rule out any possible pulmonary parenchymal pathology contributing to this new oxygen requirements where patient was on room air saturating 94% yesterday. Plan: Oxygen supplementation as needed to maintain O2 saturation goal of 90% and above -Continue DuoNebs every 6 hours scheduled. Using Stiolto at baseline. -Continue oxygen supplementation as needed to maintain O2 saturation above 90% -Continue ceftriaxone and azithromycin for the concerning left lower lobe pneumonia. Antibiotics can be weaned to cefdinir to complete a total of 5-day course upon discharge. -Follow with chest x-ray Thank you for involving pulmonary in this patient care. Will continue to follow.
[2024-01-14] MEDS: BELLADONNA ALKALOIDS 60 ML ML PO (09:54)
[2024-01-14] MEDS: METOPROLOL SUCCINATE XL 25MG TABLET 25 MG PO (09:54)
--- NOTE | 2024-01-14 09:55 | P.DS_ITS ---
General Admission date:: 01/11/24 Discharge date: 01/14/24 HPI HPI HPI: Carter Ching is a 73-year-old male with a medical history significant for COPD (baseline 4 L during the day, 2 L at night) who presented to the ED due to worsening shortness over the past 2 weeks. He states ever since he had been hospitalized for pneumonia earlier this year he has been oxygen dependent. However, he states over the past 2 weeks he has been wheezing, and having green productive cough with worsening shortness of breath. He also notes he has been wheezing more, but has been adherent with his home inhalers. He denies fevers/chills, upper respiratory symptoms, chest pain, leg swelling over this course. Denies previous cardiac history including [place], cardiac surgery, stents. He also states that his appetite has not been great over the past 2 months and that he generally does not drink much water. He also endorses to currently smoking 1 pack a day, but has decreased since starting medication to help with cravings (cannot recall the name). Workup in the ED significant for BNP 15,000, leukopenia WBC 4.1, MCV 110, platelets 114, creatinine 1.7 (baseline around 1.0), total bilirubin 1.6, ALP 133. VBG unremarkable. CXR significant for bibasilar reticular opacities, right worse than left, and small bilateral pleural effusions. He was given Solu-Medrol 125 mg, ceftriaxone, DuoNeb, azithromycin, IV Lasix 60 mg. Patient continued to be dyspneic with pursed lip breathing. Case discussed with ED provider and decision was made to admit patient for new heart failure exacerbation, COPD exacerbation, DELLA, failure to thrive. Hospital Course Hospital Course Hospital Course: Carter Ching is a 73-year-old male with a medical history significant for COPD (baseline 4 L during the day, 2 L at night) who presented to the ED due to worsening shortness over the past 2 weeks. He states ever since he had been ho spitalized for pneumonia earlier this year he has been oxygen dependent. However, he states over the past 2 weeks he has been wheezing, and having green productive cough with worsening shortness of breath. He also notes he has been wheezing more, but has been adherent with his home inhalers. He also states that his appetite has not been great over the past 2 months and that he generally does not drink much water. He also endorses to currently smoking 1 pack a day, but has decreased since starting medication to help with cravings (cannot recall the name). Workup in the ED significant for BNP 15,000, leukopenia WBC 4.1, MCV 110, platelets 114, creatinine 1.7 (baseline around 1.0), total bilirubin 1.6, ALP 133. VBG unremarkable. CXR significant for bibasilar reticular opacities, right worse than left, and small bilateral pleural effusions. He was given Solu-Medrol 125 mg, ceftriaxone, DuoNeb, azithromycin, IV Lasix 60 mg. Patient continued to be dyspneic with pursed lip breathing. Case discussed with ED provider and decision was made to admit patient for new heart failure exacerbation, COPD exacerbation, DELLA, failure to thrive. Cardiology and pulmonology assisted with care during admission. Patient to have outpatient workup for ischemic disease given mild reduction in EF. Found to have elevated RVSP on echo. Treating with diuresis for pulmonary hypertension. Pulmonology to follow with patient as an outpatient. On treatment for his COPD. Stable to discharge home with oxygen. Will have home health care for patient once discharged. Medications sent to the [facility] in [place]. Problems addressed as follows #Acute HFrEF # Severe right heart failure with pulmonary artery hypertension #Bilateral pulmonary edema #Bilateral pleural effusions ? No cardiac history including MIs, stents. BNP 15,000 on admission with bilateral pulmonary edema, pleural effusions, dyspneic on 4 L. Continued supplemental oxygen during admission. Echo obtained with EF 45%, severe RV dilation with reduced RV function. RVSP greater than 60. Tricuspid regurg identified on echo. Diuresed with Lasix. Showing improvement. Transition to 20 mg daily. Cardiology consulted, Discussed case, recommend to Initiate Entresto 24/26 mg twice daily, spironolactone 25 mg daily, initiate Jardiance 10 mg daily, aspirin 81 mg daily, and Lipitor 80 mg nightly. Recommend follow-up as an outpatient for further management with ischemic workup. A1c normal at 5.2, TSH normal at 0.7. lipid panel unremarkable. CT chest does show moderate to large right pleural effusion, discussed case with pulmonology, recommends continuing DuoNebs every 6 hours, initiated Stiolto. Oxygen as needed for goal sats greater 90%. No thoracentesis performed during admission. Effusion improving with diuresis. On day of discharge, repeat echo showed improvement in edema, small effusion on right. Continue oxygen as needed. Nebulizer ordered to discharge. #Physical deconditioning: Therapy evaluated patient, recommend home health at discharge #Hx of Substance Use - prior heavy ETOH - last drink at least >1 mo ago per pt. remote hx of illicit substance use - marijuana and crack cocaine. No signs of withdrawal during admission #COPD #Suspected community-acquired pneumonia ? Endorses increased wheezing, productive cough over the past 2 weeks. States he has been adherent to home inhalers. CXR does show bibasilar opacities, right worse than left suggesting possible underlying pneumonia especially with a history of pneumonia. Leukopenic at this time. Baseline requires 4 L during the day, 2 L at night. VBG did not show acute CO2 retention. Scheduled on DuoNebs. Started on steroids and antibiotics. Transition to cefdinir to complete 5 days of therapy. Nebulizer solution sent at discharge along with nebulizer to [facility]. Pulmonology assisted with care. Follow with pulmonology as an outpatient #Cachexia, decreased appetite # Severe protein calorie malnutrition #Failure to thrive #Current smoker #Hyperbilirubinemia #Elevated ALP ? Patient has a longstanding history of smoking, currently smokes 1 pack a day. ? Mild increase in total bilirubin 1.6, ALP 133. Could be from congestive hepatopathy and/or bone demineralization, but cannot rule out CBD obstruction from pancreatic mass in the setting of smoking. ? He also endorses recent decreased appetite over the past 2 months, weight loss. ? BMI 17 on admission. ? Per review of chest imaging/CT, has emphysema. Also found to have large right pleural effusion. Do not see any obvious masses or lesions. CT abdomen found to have free fluid in the pelvis. No abnormal masses in the abdomen either or lymphadenopathy per my review. ?TSH 0.7 , A1c 5.2 - Nicotine patch as needed. ? Nutrition consulted #DELLA CKD 3 ? Creatinine 1.7 to 2.0, baseline 1.0 in March 2023. Likely from aggressive diuresis. Transitioning to p.o. Lasix. Creatinine remained stable at 2. Would benefit from repeat labs at follow-up. CV stable/improving. Likely should stay one more day to monitor renal function/med tolerance then will need close OP follow up by Pulm and Cards. Total time spent on discharge 40 minutes in counseling, documentation, chart review, and direct care with patient. Exam Data for Last 24 hours Vital signs and Labs for Last 24 Hours: Temp Pulse Resp BP Pulse Ox O2 Del Method O2 Flow Rate 97.7 F 111 H 17 121/77 91 L Room Air 1 01/14/24 08:00 01/14/24 08:00 01/14/24 08:00 01/14/24 08:00 01/14/24 08:00 01/14/24 08:00 01/12/24 12:39 FiO2 35 01/12/24 00:34 Laboratory Results - last 24 hr 01/14/24 06:20: Sodium 133 L, Potassium 3.7, Chloride 94 L, Carbon Dioxide 31 H, Anion Gap 11.7, BUN 47 H, Creatinine 2.00 H, Estimated Creat Clear 27, Estimated GFR 33 L, Est GFR ( Amer) 40 L, Glucose 102 H, Calcium 9.0, Magnesium 1.9, Total Bilirubin 0.7, AST 24 D, ALT 30, Alkaline Phosphatase 113, Total Protein 6.8, Albumin 3.9, Globulin 2.9, Albumin/Globulin Ratio 1.3 I & O for Last 24 hours: Intake & Output 01/11/24 01/12/24 01/13/24 01/14/24 23:59 23:59 23:59 23:59 Intake Total 1370 / 1660 1730 / 2020 710 / 710 Output Total 0 / 200 450 / 1050 1400 / 1550 150 / 150 Balance 0 / -50 920 / 610 330 / 470 560 / 560 Weight 57.198 kg 55.88 kg 55.792 kg 56.331 kg Microbiology Reports for the Last 24 Hours: Microbiology 01/11/24 20:45 Blood Blood Culture - Preliminary NO GROWTH AFTER 48 HOURS 01/11/24 20:45 Blood Blood Culture - Preliminary NO GROWTH AFTER 48 HOURS Constitutional Constitutional: no acute distress, cachectic and cooperative *Routine HEENT Exam Head: Present normocephalic Eye: Present EOMI and PERRL ENT: Present mucous membranes moist *Routine Neck Exam Neck: Present supple; Absent lymphadenopathy Routine Chest/Breast/Axilla Exam Chest wall: Absent tenderness *Routine Respiratory Exam Respiratory: Present prolonged expiratory phase and distant breath sounds; Absent rhonchi, wheezes or crackles *Routine Cardiovascular Exam Cardiovascular: Present RRR *Routine Abdominal Exam Abdominal: Present soft and normoactive bowel sounds; Absent tenderness *Routine Rectal Exam Patient deferred: visual exam *Routine Exam Patient deferred: penile exam *Routine Extremities Exam Extremities: Absent cyanosis, clubbing or edema *Routine Skin Exam Skin: Present warm; Absent rash *Routine Neurological Exam Neurological: Present alert, oriented X3 and moving all extremities; Absent altered mental status Results Data Completed and Pending Labs on day of discharge: Labs from last 24 hours 01/14/24 06:20 Sodium 133 L Potassium 3.7 Chloride 94 L Carbon Dioxide 31 H Anion Gap 11.7 BUN 47 H Creatinine 2.00 H Estimated Creat Clear 27 Estimated GFR 33 L Est GFR ( Amer) 40 L Glucose 102 H Calcium 9.0 Magnesium 1.9 Total Bilirubin 0.7 AST 24 D ALT 30 Alkaline Phosphatase 113 Total Protein 6.8 Albumin 3.9 Globulin 2.9 Albumin/Globulin Ratio 1.3 Preliminary micro results at discharge 01/11/24 20:45 Blood Culture - Preliminary Blood NO GROWTH AFTER 48 HOURS 01/11/24 20:45 Blood Culture - Preliminary Blood NO GROWTH AFTER 48 HOURS DS: Diagnosis Discharge Diagnosis (1) Chronic hypoxemic respiratory failure: Status: Chronic Code(s): J96.11 - Chronic respiratory failure with hypoxia (2) Pneumonia: Status: Acute Code(s): J18.9 - Pneumonia, unspecified organism (3) Pleural effusion, bilateral: Status: Acute Code(s): J90 - Pleural effusion, not elsewhere classified (4) Emphysema lung: Status: Acute Code(s): J43.9 - Emphysema, unspecified (5) Right heart failure: Status: Acute Code(s): I50.810 - Right heart failure, unspecified (6) Severe protein-calorie malnutrition: Status: Acute Code(s): E43 - Unspecified severe protein-calorie malnutrition (7) Tricuspid regurgitation: Status: Acute Code(s): I07.1 - Rheumatic tricuspid insufficiency (8) Pulmonary arterial hypertension: Status: Acute Code(s): I27.21 - Secondary pulmonary arterial hypertension (9) HFrEF (heart failure with reduced ejection fraction): Status: Acute Code(s): I50.20 - Unspecified systolic (congestive) heart failure (10) DELLA (acute kidney injury): Status: Acute Code(s): N17.9 - Acute kidney failure, unspecified (11) Tobacco use disorder: Status: Acute Code(s): F17.200 - Nicotine dependence, unspecified, uncomplicated Meds Home Medications and Allergies Home Medications ?Medication ?Instructions ?Recorded ?Confirmed ?Type mecobalamin (vitamin B12) 1,000 1,000 mcg PO DAILY 01/11/24 01/11/24 History mcg chewable tablet (B12 Active) aspirin 81 mg tablet,delayed 81 mg PO DAILY 30 days #30 tabs 01/14/24 Rx release atorvastatin 40 mg tablet 80 mg (2 x 40 mg) PO HS 30 days 01/14/24 Rx #60 tabs cefdinir 300 mg capsule 300 mg PO BID 2 days #4 caps 01/14/24 Rx dapagliflozin propanediol 10 mg 10 mg PO DAILY 30 days #30 tabs 01/14/24 Rx tablet (Farxiga) furosemide 40 mg tablet 40 mg PO NEEDED PRN Edema or 01/14/24 Rx short of breath 30 days #30 tabs ipratropium 0.5 mg-albuterol 3 mg 3 ml inhalation Q4HP PRN Shortness 01/14/24 Rx (2.5 mg base)/3 mL nebulization Of Breath 30 days #180 mL soln metoprolol succinate 25 mg 25 mg PO DAILY 30 days #30 tabs 01/14/24 Rx tablet,extended release 24 hr nicotine 21 mg/24 hr daily 21 mg transdermal DAILYP PRN 01/14/24 Rx transdermal patch Nicotine Cravings #28 ea sacubitril 24 mg-valsartan 26 mg 1 tab PO BID 30 days #60 tabs 01/14/24 Rx tablet (Entresto) spironolactone 25 mg tablet 25 mg PO DAILY 30 days #30 tabs 01/14/24 Rx New Prescriptions to Start Prescriptions: Zion Branham atorvastatin Олег,Zion cefdinir Олег,Zion dapagliflozin propanediol [Farxiga] Олег,Zion furosemide Олег,Zion ipratropium-albuterol Олег,Zion metoprolol succinate Олег,Zion nicotine Олег,Zion sacubitril-valsartan [Entresto] Zion Denney spironolactone Zion Denney Allergies Allergy/AdvReac Type Severity Reaction Status Date / Time No Known Allergies Allergy Verified 01/15/21 17:44 Discharge Plan Disposition Patient Disposition: Home Health Service Condition: Fair Discharge Order Discharge Orders: Discharge Order (Routine); Ordered 01/14/24 Ordered By: Zion Denney Follow up Plan Follow up with: ProviderLilli MD [Primary Care Provider] - Enter time for follow up ([facility]) Mario Naranjo MD [Physician] - 02/03/24 1:00 pm Caesar Gillespie MD [Staff Physician] - 01/29/24 2:30 pm Prescriptions/Medication Reconciliation: New atorvastatin 40 mg Tablet 80 mg PO HS 30 Days Qty: 60 0RF ipratropium-albuterol 0.5 mg-3 mg(2.5 mg base)/3 mL Solution For Nebulization 3 ml inhalation Q4HP PRN (Reason: Shortness Of Breath) 30 Days Qty: 180 0RF aspirin 81 mg Tablet,Delayed Release (Dr/Ec) 81 mg PO DAILY 30 Days Qty: 30 0RF dapagliflozin propanediol [Farxiga] 10 mg Tablet 10 mg PO DAILY 30 Days Qty: 30 0RF spironolactone 25 mg Tablet 25 mg PO DAILY 30 Days Qty: 30 0RF nicotine 21 mg/24 hr Patch 24 Hour 21 mg transdermal DAILYP PRN (Reason: Nicotine Cravings) Qty: 28 0RF metoprolol succinate 25 mg Tablet Extended Release 24 Hr 25 mg PO DAILY 30 Days Qty: 30 0RF Entresto 24-26 mg Tablet 1 tab PO BID 30 Days Qty: 60 0RF furosemide 40 mg Tablet 40 mg PO NEEDED PRN (Reason: Edema or short of breath) 30 Days Qty: 30 0RF cefdinir 300 mg capsule 300 mg PO BID 2 Days Qty: 4 0RF Continued mecobalamin (vitamin B12) [B12 Active] 1,000 mcg Tablet,Chewable 1,000 mcg PO DAILY Other Ambulatory Orders: Home Medical Equipment (Routine) Location: None Selected Ordered By: Zion Denney Problem Reconciliation Problems Reviewed?: Yes Patient Discharge Instructions ACTIVITY: Continue current activity DIET: continue same diet Patient Instructions: DI for Heart Failure, DI for Pneumonia -- Adult Print Language: Lao Providers Primary Care Provider: Provider,Referral Admit Provider: Zion Denney Attending Provider: Zion Denney
--- NOTE | 2024-01-14 10:01 | HMH.OTEV ---
OT Inpatient Evaluation Rehab OT IP Evaluation Start: 01/13/24 14:51 Freq: ONCE Status: Active Protocol: Document 01/14/24 09:38 ALINA (Rec: 01/14/24 10:01 CANELOCENTERVILLESadia [id number]) Rehab OT IP Assessment Subjective History Pt oriented x3 on arrival. Pt agreeable to engage in OT evaluation. Pt was admitted to [facility] on 01/11/24 due to COPD exacerbation, CHF exacerbation , and DELLA. Pt history and physical report : Carter Ching is a 73-year-old male with a medical history significant for COPD (baseline 4 L during the day, 2 L at night) who presented to the ED due to worsening shortness over the past 2 weeks. He states ever since he had been hospitalized for pneumonia earlier this year he has been oxygen dependent. However, he states over the past 2 weeks he has been wheezing, and having green productive cough with worsening shortness of breath. He also notes he has been wheezing more, but has been adherent with his home inhalers. He denies fevers/ chills, upper respiratory symptoms, chest pain, leg swelling over this course. Denies previous cardiac history including WI, cardiac surgery, stents. He also states that his appetite has not been great over the past 2 months and that he generally does not drink much water. He also endorses to currently smoking 1 pack a day, but has decreased since starting medication to help with cravings (cannot recall the name). Subjective My chest is hurting. Prior to admission to hospital , pt lived at [facility] alone. Pt reports that there are ~10 steps to get into their apartment. Pt is independent with all ADLs but reports requiring extended time to complete them due to fatigue. Pt reports that his daughter sends meals for him. Pt also reports that he rides his scooter to a local grocery store independently. Pt has both a walker and cane at home but typically does not use them for functional mobility. Pt reports being on supplemental oxygen at home. Pt no longer engages in driving. Pt resting in bed upon arrival for initial evaluation. Pt was not wearing oxygen and reported that he had not worn it since yesterday. Pt engaged in bed mobility to transition from supine to eob with CGA. Pt performed a sit to stand with CGA and was able to stand for ~15 seconds before sitting down due to fatigue. Pt then performed another sit to stand with CGA. Pt engaged in functional mobility with SBA for ~10 feet before returning to seated position at eob. Pt demonstrated poor activity tolerance with this task as he appeared to be short of breath. Upon returning to supine position in bed independently, therapist elevated head of the bed and instructed pt to take deep breaths. Therapist then took oxygen level and noted it at 71%. Therapist notified nurse and pt was given supplemental oxygen. Pt reported chest pain and nurse requested an EKG. Pt was left resting in bed with nurse and respiratory therapist present and completing an EKG. Objective Patient Orientation Place,Name,Birthday Right Upper Extremity Gross ROM WFL Left Upper Extremity Gross ROM WFL Bed Mobility bed mobility - supine/sit Assist Level Contact Guard/Hand Hold Transfer Training Sit/Stand Transfer Assist Level Supervision/Stand by Decrease in Endurance Yes Rehab OT IP prob,goals,plan Problems Date of Evaluation: 01/14/24 OT IP Problems Bed Mobility,Transfers,Balance ,Self care,Safety Rehab Potential Rehab Potential Good Equipment Needs Assistive Devices None / NA Plan OT intervention Plan Bed Mobility,Transfers,Balance ,Self care,Safety,Therapeutic Exercise OT Plan Frequency Daily Duration LOS Discharge Goals Bed Mobility Ability Standby Assistance Sit to Stand Chair Transfer Ability Supervision/Stand by Chair Transfer Ability Supervision/Stand by Chair Transfer Technique Sit to/from Ambulatory Feeding Ability Independent Lower Body Dressing Ability Standby Assistance Upper Body Dressing Ability Standby Assistance Bathing Ability Standby Assistance Performing Toilet Hygiene Ability Standby Assistance Overall Commode/Toilet Transfer Ability Standby Assistance Commode/Toilet Transfer Technique Sit to/from Ambulatory Commode/Toilet Transfer Assistive Grab Bars Devices Oral Care Assist Independent Decrease in Endurance No Discharge Plan OT Discharge Plan Pt will continue to be seen for OT services while at [facility]. Once medically stable, pt could return home. Pt would benefit most from a evaluation to address deficits in occupational engagement. Continued skilled services are important to improve safety, ADL independence, endurance, balance, and functional transfers to reach [facility]. Eval Complexity Eval Charge Codes 48383 - Moderate Complexity PHYSICIAN CERTIFICATION: I certify the specified therapy services for Humza Machado are required, authorized, and reviewed every 30 days.
[2024-01-14 10:16] LABS: Troponin I 0.03 ng/ml (0.00-0.034)
--- NOTE | 2024-01-14 10:54 | XR_ITS ---
FINAL REPORT CLINICAL HISTORY: Hypoxia COMPARISON: 01/13/2024 FINDINGS: SINGLE-VIEW CHEST The heart measures in the upper limits of normal in size. The mediastinum is normal. The lungs are hyperinflated with atelectasis at the right base. There is a small right effusion. The left lung is clear. There is no pneumothorax. IMPRESSION: Right base atelectasis with small right effusion. Reviewed, Interpreted and Dictated by Magnus Anna MD Transcribed by Beatris Marc Authenticated and [facility]
[2024-01-14 11:14] VITALS: PULSE 108; PULSE 112
--- NOTE | 2024-01-14 11:30 | EXP.CARD.PN ---
Subjective Subjective Date: 01/14/24 Time: 10:00 Principal diagnosis: HFrEF, PAH, AC-resp failure Interval history: No events overnight. Creatinine stable. Patient feels ready for discharge. Exam Data for Last 24 hours Vital signs and Labs for Last 24 Hours: Temp Pulse Resp BP Pulse Ox O2 Del Method O2 Flow Rate 97.7 F 112 H 17 121/77 91 L Nasal Cannula 2 01/14/24 08:00 01/14/24 11:14 01/14/24 08:00 01/14/24 08:00 01/14/24 08:00 01/14/24 11:00 01/14/24 11:00 FiO2 35 01/12/24 00:34 Laboratory Results - last 24 hr 01/14/24 06:20: Sodium 133 L, Potassium 3.7, Chloride 94 L, Carbon Dioxide 31 H, Anion Gap 11.7, BUN 47 H, Creatinine 2.00 H, Estimated Creat Clear 27, Estimated GFR 33 L, Est GFR ( Amer) 40 L, Glucose 102 H, Calcium 9.0, Magnesium 1.9, Total Bilirubin 0.7, AST 24 D, ALT 30, Alkaline Phosphatase 113, Total Protein 6.8, Albumin 3.9, Globulin 2.9, Albumin/Globulin Ratio 1.3 01/14/24 09:49: Troponin I 0.03 I & O for Last 24 hours: Intake & Output 01/11/24 01/12/24 01/13/24 01/14/24 23:59 23:59 23:59 23:59 Intake Total 1370 / 1660 1730 / 2020 710 / 710 Output Total 0 / 200 450 / 1050 1400 / 1550 150 / 150 Balance 0 / -50 920 / 610 330 / 470 560 / 560 Weight 126 lb 1.6 oz 123 lb 3.109 oz 123 lb 124 lb 3 oz Microbiology Reports for the Last 24 Hours: Microbiology 01/11/24 20:45 Blood Blood Culture - Preliminary NO GROWTH AFTER 48 HOURS 01/11/24 20:45 Blood Blood Culture - Preliminary NO GROWTH AFTER 48 HOURS Constitutional Constitutional: no acute distress, thin, cachectic, chronically ill appearing and cooperative *Routine HEENT Exam Eye: Present PERRL *Routine Respiratory Exam Respiratory: Present CTA bilaterally; Absent accessory muscle use, wheezes or crackles Comments: Lungs are clear today, much improved *Routine Cardiovascular Exam Cardiovascular: Present RRR, Normal S1 and Normal S2; Absent murmur, gallop or rubs *Routine Abdominal Exam Abdominal: Present soft; Absent tenderness *Routine Extremities Exam Extremities: Present pulses intact; Absent cyanosis or edema *Routine Skin Exam Skin: Present intact; Absent erythema or wounds *Routine Neurological Exam Neurological: Present alert and oriented X3 Routine Psychiatric Exam Psychiatric: Present cooperative Progress Note: A&P Assessment and plan (1) Chronic hypoxemic respiratory failure: Status: Chronic (2) Pneumonia: Status: Acute (3) Pleural effusion, bilateral: Status: Acute (4) Emphysema lung: Status: Acute (5) HFrEF (heart failure with reduced ejection fraction): Status: Acute (6) Right heart failure: Status: Acute (7) Pulmonary arterial hypertension: Status: Acute Assessment and Plan Assessment and Plan for All Diagnoses:: Acute on Chronic HFrEF -proBNP 15,000 with bilateral effusions and acute hypoxia -Echo shows EF 45% Severe RV dilation, Severe TR, Severe PAH -Cont Entresto, Aldactone, Farxiga. Hold on BB due to resp failure. Uptitrate meds as outpatient. -Cont ASA and Statin. OP ischemic workup. Severe RHF, PAH, TR - likely secondary to severe chronic hypoxic resp failure and cachexia - pulm consult - DC tobacco Acute on Chronic Hypoxic Resp Failure - Baseline 4L/min daytime since April 2023 - ongoing tob use since age 14 - wheezing throughout - improving - on meds for COPD exacerbation, pulm is consulted Hx of Substance Use - prior heavy ETOH - last drink at least >1 mo ago per pt - remote hx of illicity substance use - marijuana and cocaine Cachexia, BMI 16 - pulm vs CV etiology? - pulm and CV w/u in process as well as cancer screenings - recommend nutrition consult - Patient requesting SNF at discharge CKD-III - Cr up from 1.7 to 2.0 with diuresis and GDMT HF meds - now stable - Reduce Lasix from IV 40 q12 to po 40mg PRN - daily labs - monitor for edema CV stable/improving. NO further IP Cardiac workup warranted at this time. He needs BMP and f/u in our office 1 week. CV Discharge Meds: Aspirin 81 mg 1 p.o. daily Atorvastatin 40 mg 1 p.o. nightly Toprol XL 25 mg 1 p.o. daily Entresto 24-26 mg 1 p.o. twice daily Farxiga 10 mg 1 p.o. daily Aldactone 25 mg 1 p.o. daily Lasix 40mg 1 p.o. daily PRN edema/orthopnea
[2024-01-14 12:00] VITALS: BP 112/66; PULSE 111; PULSE 115; RESP 19; TEMP 36.6; O2SAT 100
--- NOTE | 2024-01-16 10:48 | CARE MANAGER ---
Attempted to contact patient x2 related to hospital discharge. Left VM message. ALEM Delvalle
== END 2024-01-14 14:41 | disposition home health service (06) | DRG 291 ==
LOC: ER 20:00 → 2ND 21:57
PROVIDERS: Student in an Organized Health Care Education/Training Program; Admitting Provider Internal Medicine Adolescent Medicine; Emergency Provider Emergency Medicine; Visit Provider Internal Medicine Adolescent Medicine
DX: I50.21 Acute systolic (congestive) heart failure (principal); E43 Unspecified severe protein-calorie malnutrition; J18.9 Pneumonia, unspecified organism; J96.21 Acute and chronic respiratory failure with hypoxia; J44.1 Chronic obstructive pulmonary disease with (acute) exacerbation; J96.11 Chronic respiratory failure with hypoxia; R64 Cachexia; Z68.1 Body mass index [BMI] 19.9 or less, adult; I27.21 Secondary pulmonary arterial hypertension; F17.210 Nicotine dependence, cigarettes, uncomplicated; I07.1 Rheumatic tricuspid insufficiency; I27.20 Pulmonary hypertension, unspecified; N18.30 Chronic kidney disease, stage 3 unspecified; J43.9 Emphysema, unspecified; F17.200 Nicotine dependence, unspecified, uncomplicated; Z99.81 Dependence on supplemental oxygen; D53.9 Nutritional anemia, unspecified
CPT/HCPCS: 36415; 71045; 71250; 74176; 80053; 80061; 82248; 82306; 82607; 82746; 82803; 83036; 83605; 83735; 83880; 84443; 84484; 85025; 85730; 86803; 87040; 87265; 87389; 87486; 87581; 87632; 87635; 93005; 93306; 94640; 94761; 97162; 97166; 99291; J0456; J0696; J1644; J1940; J2919; J3475; J7050; J7620